=== PATIENT | female | born 1980 | race African-American/Black ===

== ENCOUNTER 2023-06-13 05:01 | Emergency (ER) | payer SELFPAY ==
--- OUTSIDE RECORDS SUMMARY | 2023-06-13 05:09 | XMS REPORT | Continuity of Care Document ---
Author Name Unknown Address [address] [facility] [place] [address] [facility] Address [address] [facility] [address] [place] [address] [address] Machine Runner Name Role Phone Ramiro Olvera MD Primary Care Physician [phone] VERONICA ZHENG Attending Clinician Unavailable TOBIAS ROUSE Attending Clinician Unavailable Ruby Menjivar MD Attending Clinician [phone] RUBY MENJIVAR Attending Clinician Unava Tobias Beach MD Attending Clinician [phone] Florina Linares Attending Clinician [phone] ANDREW MATAMOROS Attending Clinician Unavailable Doctor Unassigned, [place] Attending Clinician U yancy Royal MD, Fatimah Attending Clinician [phone] Ramiro Olvera MD Attending Clinician [phone] EITAN NEWELL Attending Clinician Unavailable Eitan Newell MD Attending Clinician [phone] SHAWNEE GREY Attending Clinician Unavail able Shawnee Grey MD Attending Clinician [phone] ALEXA PIZARRO Attending Clinician Unavailable Unknown, Attending Attending Clinician Unavailab chemo Pizarro PHOTOGRAPH TINTER, Alexa Attending Clinician [phone] YADIEL KENNEDY Attending Clinician Unavail able Yadiel Kennedy MD Attending Clinician [phone] Human PHOTOGRAPH TINTER, Maryanne Lucio Attending Clinician [phone] SACHI EUGENE Attending Clinician Unavailable HUMAN, MARYANNE Lucio Attending Clinician Unavailable Zoey Verma NP Attending Clinician [phone] Darby Moss MD Attending Clinician [phone] ZOEY VERMA Attending Clinician Unavailab FAUZIA Fuentes Attending Clinician Unavailable Sara PIERSON, Fauzia Victor Attending Clinician [phone] Lisa LEE, Tamy Roe Attending Clinician [phone] JAKY BISHOP Attending Clinician Unavailable RAMIRO OLVERA Attending Clinician Unavailable Terrie JEFFERSONP, Maggy Attending Clinician + MAGGY FALCON Attending Clinician Unaduke Merrill RN, Dyan Victor Attending Clinician Tanya Erazo MD Attending Clinician [phone] Lab, [facility] Attending Clinician Unavailable TANYA DIAZ Attending Clinician UnavailABHISHEK Viramontes Attending Clinician Unavailable Veronica Zheng MD Attending Clinician [phone] Abhishek Oden Attending Clinician [phone] TAMY HERNANDEZ Attending Clinician Unavailable YOLIS VILLA Attending Clinician Unavailable Allen KILGORE, Yolis Attending Clinician [phone] Lab, [facility] - Attending Clinician Unavailable Susanne Holland MD Attending Clinician [phone] SUSANNE HOLLAND Attending Clinician Unavailable DARBY MOSS Attending Clinician Unavailable Paz Miguel Attending Clinician [phone] AUGUST WEBB Attending Clinician Unavailable DELMA HARTMAN Attending Clinician UnavailPAULA Douglas Attending Clinician Unavailable Bong MONTERO, Janiya Kaur Attending Clinician Unavailab chemo MARIE, CHERI Attending Clinician Unavailable Marie PHOTOGRAPH TINTER, Cheri Attending Clinician [phone] MICHAEL BARRIENTOS Attending Clinician Unavailable Only, [facility] Attending Clinician Unavailabl e UNKNOWN, ATTENDING Attending Clinician Unavailab chemo BRAGA, CUBA B Attending Clinician Unavailable Mariely PHOTOGRAPH TINTER, Cuba B Attending Clinician [phone] Colin KILGORE, Ramonita Attending Clinician [phone] Spenser Kang MD Attending Clinician [phone] SPENSER KANG Attending Clinician Unavailable YADIEL BANEGAS Attending Clinician Unava ilable SUNSHINE DICKSON Attending Clinician Unavailable BERNABE VIVAS Attending Clinician UnavaRADHA Whyte Attending Clinician Unavail able RYAN MITCHELL Attending Clinician Unavailable GERARDO BARRIENTOS Attending Clinician Unavaila CATHERINE Li Attending Clinician Unavailable VERONICA ZHENG Admitting Clinician Unavailable YADIEL KENNEDY Admitting Clinician Unavail able MAGGY FALCON Admitting Clinician Unava ilable DARBY MOSS Admitting Clinician Unavailable PAZ COLON Admitting Clinician Unavaila yariel Zheng MD, Veronica Admitting Clinician [phone] Payers Payer Name Policy Type Policy Number Effective Date Expirati on Date Source [facility] [id number] 2016 00:00:00 Problems Condition Name Condition Details Condition Category Status Onset Date Resolution Date Last Treatment Date Treating Clinician Comments Source Low HDL (under 40) Low HDL (under 40) Disease Active 6-14 00:00: 00 [facility] Obesity affecting in third trimester Obesity affecting in third trimester Disease Active 18 00:00: 00 [facility] Morbid obesity due to excess calories Morbid obesity due to excess calories Disease Active 09-22 00:00: 00 [facility] HSV (herpes simplex virus) anogenital infection HSV (herpes simplex virus) anogenital infection Disease Active 07-25 00:00: 00 [facility] Allergies, Adverse Reactions, Alerts Allergy Name Allergy Type Status Severity Reaction(s) Onset Date Inactive Date Treating Clinician Comments Source IBUPROFE N DRUG INGREDI Active Other-Cmnt 11-14 00:00: 00 [facility] Ibuprofe n Propensi ty to adverse reaction s Active Other - See comments 11-14 00:00: 00 Pt states unable to take d/t having gastric bypass. [facility] NO KNOWN ALLERGIE S Drug Class Active [facility] Family History Family Member Diagnosis Comments Start Date Stop Date Sourc e Natural father Heart Unive [facility] Natural father Lipids Unive [facility] Natural father Other - see comments [facility] Maternal grandmother Diabetes [facility] Maternal grandmother Hypertension [facility] Natural mother Diabetes Unive [facility] Natural [facility] Hy[facility] Paternal grandmother Ovarian Cancer [facility] Natural sister Breast Cancer [facility] Social History Social Habit Start Date Stop Date Quantity Comments Source ASSERTION 2023-04-14 00:00:00 [facility] Gender identity [facility] Sexual orientation [facility] Alcohol intake 2023-06-08 00:00:00 2023-06-08 00:00:00 Current non-drinker of alcohol (finding) [facility] History of Social function 2022-09-17 00:00:00 2022-09-17 00:00:00 [facility] Exposure to SARS-CoV-2 (event) 2022-07-18 00:00:00 2022-07-28 15:11:00 Not sure [facility] Tobacco use and exposure 2021-09-26 00:00:00 2021-09-26 00:00:00 Smokeless tobacco non-user [facility] Sex Assigned At 1980 00:00:00 1980 00:00:00 [facility] Smoking Status Start Date Stop Date Source Never smoked tobacco [facility] Medications Ordered Medication Name Filled Medication Name Start Date Stop Date Current Medication? Ordering Clinician Indication Dosage Frequency Signature (SIG) Comments Components Source terconazole 0.4 % vaginal cream 06-09 00:00: 00 06-17 04:59 :00 Yes 1{appli cator} Insert 1 Applicator into vagina at bedtime for 7 days. [facility] magnesium oxide 400 mg (241.3 mg magnesium) tablet 05-26 00:00: 00 Yes [id number] 400mg Take 1 tablet by mouth in the morning. [facility] doxylamine- pyridoxine, vit B6, (DICLEGIS) 10-10 mg per tablet 05-25 00:00: 00 Yes [id number] 2{tbl} Take 2 tablets by mouth at bedtime. Take 1-2 tabs at bedtime as needed for nausea/vom iting [facility] amoxicillin -clavulanat e (AUGMENTIN) 875-125 mg per tablet 05-23 00:00: 00 05-31 04:59 :00 Yes [id number] 1{tbl} Take 1 tablet by mouth in the morning and 1 tablet in the evening. Do all this for 7 days. [facility] valACYclovi r 500 mg tablet 05-03 00:00: 00 Yes [id number] 500mg Take 1 tablet by mouth in the morning. [facility] triamcinolo ne acetonide 0.1 % cream 05-03 00:00: 00 Yes [id number] Apply to area(s) 2 (two) times daily. [facility] SERTRALINE 100 mg tablet 04-29 00:00: 00 Yes [id number] 100mg Take 1 tablet by mouth in the morning. [facility] SUMATRIPTAN 50 mg tablet 04-29 00:00: 00 Yes [id number] TAKE ONE (1) TABLET(S) BY MOUTH AT ONSET OF HEADACHE, MAY REPEAT 1 TAB AFTER 2 HOURS IF NO IMPROVEMEN T. TAKE NO MORE THAN 4 TABLETS IN 24 HOURS. [facility] bromphenira mine-pseudo ephedrine-D M (BROMFED DM) 2-30-10 mg/5 mL syrup 03-30 00:00: 00 05-11 00:00 :00 No [id number] 5mL Take 5 mL by mouth 4 (four) times daily as needed for Cough. [facility] nirmatrelvi r-ritonavir (PAXLOVID) 300 mg (150 mg x 2)-100 mg tablet 03-30 00:00: 00 04-05 05:59 :00 Yes [id number] 3{tbl} Take 3 tablets by mouth in the morning and 3 tablets in the evening. Do all this for 5 days. Take 2 tablets of Nirmatrelv ir and 1 tablet of Ritonavir per dose, 1 dose in the a.m. and 1 dose in the p.m. [facility] hydrocortis one 2.5 % cream 03-23 00:00: 00 Yes [id number] Apply to area(s) 2 (two) times daily as needed for Rash. Stop when clear, restart if rash returns. [facility] hydrocortis one 2.5 % ointment 03-23 00:00: 00 Yes [id number] Apply to area(s) 2 (two) times daily as needed for Rash. Stop when clear, restart if rash returns. [facility] fluocinolon e (DERMA-SMOO THE/FS BODY OIL) 0.01 % body oil 03-23 00:00: 00 Yes [id number] Apply to area(s) 3 (three) times daily. [facility] triamcinolo ne acetonide 0.1 % cream 03-23 00:00: 00 05-03 00:00 :00 No [id number] Apply to area(s) 2 (two) times daily. [facility] SUMAtriptan 50 mg tablet 03-16 00:00: 00 04-29 00:00 :00 No [id number] TAKE ONE (1) TABLET(S) BY MOUTH AT ONSET OF HEADACHE, MAY REPEAT 1 TAB AFTER 2 HOURS IF NO IMPROVEMEN T. TAKE NO MORE THAN 4 TABLETS IN 24 HOURS. [facility] acetaminoph en (TYLENOL) tablet 650 mg 2022-03 15:30: 00 02-26 15:34 :00 No 650mg 650 mg, Oral, ONCE, 1 dose, On Wed02/26/23 at 0930, SUYAPA [facility] NaCl 0.9% (NS) bolus infusion 1,000 mL 2022-03 15:15: 00 02-26 15:27 :00 No 1000mL at 999 mL/hr, 1,000 mL, IV Infusion, ONCE, 1 dose, On Wed02/26/23 at 0915, STAT [facility] fluconazole (DIFLUCAN) tablet 150 mg 2022-03 15:00: 00 02-26 14:36 :00 No 150mg 150 mg, Oral, ONCE NOW, 1 dose, On Wed02/26/23 at 0900, SUYAPA
Re ason for Anti-Infec tive: Documented Infection< br>Documen orlin Infection Site: Pelvic
Duration of Therapy: Other (see Comments) [facility] dicyclomine (BENTYL) capsule 20 mg 2022-03 14:15: 00 02-26 14:36 :00 No 20mg 20 mg, Oral, ONCE, 1 dose, On Wed02/26/23 at 0815, SUYAPA [facility] dicyclomine 20 mg tablet 2022-03 00:00: 00 Yes [id number] 20mg Take 1 tablet by mouth 4 (four) times daily as needed for Abdominal pain. [facility] ondansetron 4 mg disintegrat ing tablet 2022-03 00:00: 00 Yes [id number] 4mg Take 1 tablet by mouth every 8 (eight) hours as needed for Nausea and Vomiting (N/V). [facility] fluconazole (DIFLUCAN) 150 mg tablet 2022-03 00:00: 00 02-27 05:59 :00 No 150mg Take 1 tablet by mouth once now for 1 dose. Take in 72 Hours no refills [facility] VALACYCLOVI R 500 mg tablet 9-28 00:00: 00 04-30 00:00 :00 No [id number] 500mg TAKE 1 TABLET BY MOUTH DAILY. [facility] SUMAtriptan 50 mg tablet 11-20 00:00: 00 03-16 00:00 :00 No [id number] TAKE ONE (1) TABLET(S) BY MOUTH , MAY REPEAT AFTER 2 HOURS IF NO IMPROVEMEN T. TAKE NO MORE THAN 4 TABLETS IN 24 HOURS. [facility] fluticasone propionate 50 mcg/actuati on nasal spray 2 [place] 11-14 13:15: 00 11-14 12:34 :00 No 2{spray } 2 [place], Nasal, ONCE, 1 dose, On 11/14/22 at 0815, Routine [facility] ketorolac (TORADOL) injection 15 mg 11-14 12:30: 00 11-14 12:35 :00 No 15mg 15 mg, Intramuscu lar, ONCE, 1 dose, On 11/14/22 at 0730, Routine [facility] albuterol 90 mcg/actuati on inhaler 11-14 00:00: 00 Yes [id number] 2{puff} Inhale 2 Puffs every 4 (four) hours as needed for Wheezing or Shortness of Breath. [facility] nirmatrelvi r-ritonavir (PAXLOVID) 300 mg (150 mg x 2)-100 mg tablet 11-14 00:00: 00 03-30 00:00 :00 No [id number] 3{tbl} Take 3 tablets by mouth in the morning and 3 tablets in the evening. [facility] benzonatate 100 mg capsule 11-14 00:00: 00 03-30 00:00 :00 No [id number] 100mg Take 1 capsule by mouth 3 (three) times daily as needed for Cough. [facility] SUMAtriptan 50 mg tablet 25 00:00: 00 11-20 00:00 :00 No [id number] TAKE ONE (1) TABLET(S) BY MOUTH , MAY REPEAT AFTER 2 HOURS IF NO IMPROVEMEN T. TAKE NO MORE THAN 4 TABLETS IN 24 HOURS. [facility] SERTraline 100 mg tablet 09-17 00:00: 00 04-29 00:00 :00 No [id number] 100mg Take 1 tablet by mouth in the morning. [facility] SERTraline 50 mg tablet 09-17 00:00: 00 11-20 00:00 :00 No TAKE ONE-HALF (1/2) TABLET(S) BY MOUTH DAILY FOR THE FIRST WEEK PRIOR TO TRANSITION ING TO FULL DOSE OF ONE TABLET ONCE A DAY IN THE MORNING. [facility] fluconazole 150 mg tablet 16 00:00: 00 05-11 00:00 :00 No Take one tablet PO today, then repeat in 72 hours [facility] metroNIDAZO LE 500 mg tablet 08-21 00:00: 00 08-29 04:59 :00 No 500mg Take 1 tablet by mouth in the morning and 1 tablet in the evening. Do all this for 7 days. [facility] fluconazole 150 mg tablet 08-20 00:00: 00 05-11 00:00 :00 No [id number] Take one tablet PO today, then repeat in 72 hours [facility] norgestimat e-ethinyl estradioL (SPRINTEC) 0.25-35 mg-mcg per tablet 08-20 00:00: 00 03-30 00:00 :00 No [id number] 1{tbl} Take 1 tablet by mouth in the morning. [facility] norgestimat e-ethinyl estradioL (SPRINTEC) 0.25-35 mg-mcg per tablet 5-31 00:00: 00 08-20 00:00 :00 No 1{tbl} Take 1 tablet by mouth in the morning. [facility] SERTraline 50 mg tablet 4-27 00:00: 00 09-17 00:00 :00 No [id number] 50mg Take 1 tablet by mouth in the morning. Take 1/2 tab by mouth daily for the first week prior to transition ing to full dose [facility] fluconazole 150 mg tablet 12 00:00: 00 08-20 00:00 :00 No TAKE 1 TABLET BY MOUTH ONCE NOW FOR 1 DOSE. [facility] traMADoL 50 mg tablet 06-04 00:00: 00 Yes TAKE ONE (1) TABLET BY MOUTH EVERY SIX HOURS NEEDED FOR PAIN (SCALE 7-10) OR PAIN (SCALE 4-6). [facility] triamcinolo ne acetonide 0.1 % cream 06-04 00:00: 00 Yes Apply to area(s) 2 (two) times daily as needed. [facility] methylPREDN ISolone (MEDROL, GERMANIA,) 4 mg tablets 06-04 00:00: 00 05-11 00:00 :00 No [id number] Take by mouth SEE-INSTRU CTIONS. follow package directions [facility] SUMAtriptan 50 mg tablet 06-04 00:00: 00 09-29 00:00 :00 No [id number] Take one tab, may repeat after 2 hours if no improvemen t. Take no more than 4 tablets in 24 hours [facility] fluconazole (DIFLUCAN) 150 mg tablet 06-04 00:00: 00 06-17 00:00 :00 No [id number] 150mg Take 1 tablet by mouth once now for 1 dose. [facility] azithromyci n (ZITHROMAX Z-GERMANIA) 250 mg tablet 06-04 00:00: 00 06-10 04:59 :00 No [id number] Take 2 tablets by mouth daily for 1 day, THEN 1 tablet daily for 4 days. [facility] SUMAtriptan 50 mg tablet 05-24 00:00: 00 06-04 00:00 :00 No [id number] Take one tab, may repeat after 2 hours if no improvemen t. Take no more than 4 tablets in 24 hours [facility] metoclopram dora HCl (REGLAN) 5 mg tablet 05-24 00:00: 00 05-28 04:59 :00 No [id number] 10mg Take 2 tablets by mouth every 6 (six) hours as needed for Nausea and Vomiting (N/V) for up to 3 days. [facility] Ketorolac Tromethamin e 60 mg/2 mL 05-24 00:00: 00 05-24 00:00 :00 No [id number] 60mg 2 mL by Intramuscu lar route once now for 1 dose. [facility] triamcinolo ne acetonide 0.1 % cream 03-20 00:00: 00 06-04 00:00 :00 No [id number] Apply to area(s) 2 (two) times daily as needed for Itching. [facility] cephALEXin (KEFLEX) 500 mg capsule 03-20 00:00: 00 03-26 05:59 :00 No [id number] 500mg Take 1 capsule by mouth 4 (four) times daily for 5 days. [facility] predniSONE 20 mg tablet 03-20 00:00: 00 03-26 05:59 :00 No [id number] 20mg Take 1 tablet by mouth in the morning for 5 days. [facility] atomoxetine (STRATTERA) 25 mg capsule 2021-03 00:00: 00 04-03 05:59 :00 No [id number] 25mg Take 1 capsule by mouth in the morning for 30 days. [facility] ketorolac (TORADOL) injection 15 mg 2021-03 02:30: 00 01-07 14:29 :00 No 15mg 15 mg, Slow IV Push, ONCE, 1 dose, On Wed01/06/22 at 2130, Routine [facility] iopamidol (ISOVUE 370-500 mL) injection 50 mL 2021-03 01:45: 00 01-07 01:45 :00 No [id number] 50mL 50 mL, Intravenou s, ONCE, 1 dose, On Wed01/06/22 at 2045, Routine [facility] norgestimat e-ethinyl estradioL (SPRINTEC) 0.25-35 mg-mcg per tablet 2021-03 00:00: 00 08-05 00:00 :00 No 1{tbl} Take 1 tablet by mouth in the morning. [facility] THOMAS FE 03/27, 28, 1 mg-20 mcg (21)/75 mg (7) tablet 2021-03 00:00: 00 08-05 00:00 :00 No TAKE ONE (1) TABLET BY MOUTH ONCE DAILY. [facility] traMADoL (ULTRAM) 50 mg tablet 2021-03 00:00: 00 06-04 00:00 :00 No [id number] 50mg Take 1 tablet by mouth every 6 (six) hours as needed for Pain (scale 7-10) or Pain (scale 4-6). Indication s: acute pain [facility] fluconazole 150 mg tablet 09-26 00:00: 00 06-04 00:00 :00 No [id number] Take one tablet PO today, then repeat in 72 hours [facility] valACYclovi r (VALTREX) 500 mg tablet 08-11 00:00: 00 12-03 00:00 :00 No [id number] 500mg Take 1 tablet by mouth daily. [facility] fluconazole 150 mg tablet 08-11 00:00: 00 06-04 00:00 :00 No Take one tablet PO today, then repeat in 72 hours [facility] LOESTRIN FE (LOESTRIN FE 03/27) 1 mg-20 mcg (21)/75 mg (7) tablet 08-06 00:00: 00 01-07 00:00 :00 No [id number] 1{tbl} Take 1 tablet by mouth daily. [facility] omeprazole 20 mg capsule 2020-03 00:00: 00 Yes [id number] Open capsule and take by mouth once daily for 8 weeks [facility] ondansetron 4 mg disintegrat ing tablet 2020-03 00:00: 00 08-20 00:00 :00 No [id number] 4mg Take 1 tablet by mouth every 8 (eight) hours as needed for Nausea and Vomiting (N/V). [facility] oxyCODONE 5 mg immediate release tablet 2020-03 00:00: 00 06-04 00:00 :00 No [id number] 5mg Take 1 tablet by mouth every 6 (six) hours as needed for Pain (scale 7-10). Indication s: acute pain [facility] fluticasone propionate 50 mcg/actuati on nasal spray 11-04 00:00: 00 Yes [id number] 1{spray } Use 1 [place] in each nostril 2 (two) times daily. [facility] Immunizations Ordered Immunization Name Filled Immunization Name Date Status Comments Source SARS-COV-2 COVID-19 PFIZER VACCINE 2020-08-19 00:00:00 Completed [facility] SARS-COV-2 COVID-19 PFIZER VACCINE 2020-08-19 00:00:00 Completed [facility] SARS-COV-2 COVID-19 PFIZER VACCINE 2020-08-19 00:00:00 Completed [facility] SARS-COV-2 COVID-19 PFIZER VACCINE 2020-08-19 00:00:00 Completed [facility] SARS-COV-2 COVID-19 PFIZER VACCINE 2020-08-19 00:00:00 Completed [facility] SARS-COV-2 COVID-19 PFIZER VACCINE 2020-08-19 00:00:00 Completed [facility] SARS-COV-2 COVID-19 PFIZER VACCINE 2020-08-19 00:00:00 Completed [facility] SARS-COV-2 COVID-19 PFIZER VACCINE 2020-08-19 00:00:00 Completed [facility] SARS-COV-2 COVID-19 PFIZER VACCINE 2020-08-19 00:00:00 Completed [facility] SARS-COV-2 COVID-19 PFIZER VACCINE 2020-08-19 00:00:00 Completed [facility] SARS-COV-2 COVID-19 PFIZER VACCINE 2020-08-19 00:00:00 Completed [facility] SARS-COV-2 COVID-19 PFIZER VACCINE 2020-08-19 00:00:00 Completed [facility] SARS-COV-2 COVID-19 PFIZER VACCINE 2020-08-19 00:00:00 Completed [facility] SARS-COV-2 COVID-19 PFIZER VACCINE 2020-08-19 00:00:00 Completed [facility] SARS-COV-2 COVID-19 PFIZER VACCINE 2020-08-19 00:00:00 Completed [facility] SARS-COV-2 COVID-19 PFIZER VACCINE 2020-08-19 00:00:00 Completed [facility] SARS-COV-2 COVID-19 PFIZER VACCINE 2020-08-19 00:00:00 Completed [facility] SARS-COV-2 COVID-19 PFIZER VACCINE 2020-08-19 00:00:00 Completed [facility] SARS-COV-2 COVID-19 PFIZER VACCINE 2020-08-19 00:00:00 Completed [facility] SARS-COV-2 COVID-19 PFIZER VACCINE 2020-08-19 00:00:00 Completed [facility] SARS-COV-2 COVID-19 PFIZER VACCINE 2020-08-19 00:00:00 Completed [facility] SARS-COV-2 COVID-19 PFIZER VACCINE 2020-08-19 00:00:00 Completed [facility] SARS-COV-2 COVID-19 PFIZER VACCINE 2020-08-19 00:00:00 Completed [facility] SARS-COV-2 COVID-19 PFIZER VACCINE 2020-08-19 00:00:00 Completed [facility] SARS-COV-2 COVID-19 PFIZER VACCINE 2020-08-19 00:00:00 Completed [facility] SARS-COV-2 COVID-19 PFIZER VACCINE 2020-08-19 00:00:00 Completed [facility] SARS-COV-2 COVID-19 PFIZER VACCINE 2020-08-19 00:00:00 Completed [facility] SARS-COV-2 COVID-19 PFIZER VACCINE 2020-08-19 00:00:00 Completed [facility] SARS-COV-2 COVID-19 PFIZER VACCINE 2020-08-19 00:00:00 Completed [facility] SARS-COV-2 COVID-19 PFIZER VACCINE 2020-08-19 00:00:00 Completed [facility] SARS-COV-2 COVID-19 PFIZER VACCINE 2020-08-19 00:00:00 Completed [facility] SARS-COV-2 COVID-19 PFIZER VACCINE 2020-08-19 00:00:00 Completed [facility] SARS-COV-2 COVID-19 PFIZER VACCINE 2020-08-19 00:00:00 Completed [facility] SARS-COV-2 COVID-19 PFIZER VACCINE 2020-08-19 00:00:00 Completed [facility] SARS-COV-2 COVID-19 PFIZER VACCINE 2020-08-19 00:00:00 Completed [facility] SARS-COV-2 COVID-19 PFIZER VACCINE 2020-08-19 00:00:00 Completed [facility] SARS-COV-2 COVID-19 PFIZER VACCINE 2020-08-19 00:00:00 Completed [facility] SARS-COV-2 COVID-19 PFIZER VACCINE 2020-08-19 00:00:00 Completed [facility] SARS-COV-2 COVID-19 PFIZER VACCINE 2020-08-19 00:00:00 Completed [facility] SARS-COV-2 COVID-19 PFIZER VACCINE 2020-08-19 00:00:00 Completed [facility] SARS-COV-2 COVID-19 PFIZER VACCINE 2020-08-19 00:00:00 Completed [facility] SARS-COV-2 COVID-19 PFIZER VACCINE 2020-08-19 00:00:00 Completed [facility] SARS-COV-2 COVID-19 PFIZER VACCINE 2020-08-19 00:00:00 Completed [facility] SARS-COV-2 COVID-19 PFIZER VACCINE 2020-08-19 00:00:00 Completed [facility] SARS-COV-2 COVID-19 PFIZER VACCINE 2020-08-19 00:00:00 Completed [facility] SARS-COV-2 COVID-19 PFIZER VACCINE 2020-07-26 00:00:00 Completed [facility] SARS-COV-2 COVID-19 PFIZER VACCINE 2020-07-26 00:00:00 Completed [facility] SARS-COV-2 COVID-19 PFIZER VACCINE 2020-07-26 00:00:00 Completed [facility] SARS-COV-2 COVID-19 PFIZER VACCINE 2020-07-26 00:00:00 Completed [facility] SARS-COV-2 COVID-19 PFIZER VACCINE 2020-07-26 00:00:00 Completed [facility] SARS-COV-2 COVID-19 PFIZER VACCINE 2020-07-26 00:00:00 Completed [facility] SARS-COV-2 COVID-19 PFIZER VACCINE 2020-07-26 00:00:00 Completed [facility] SARS-COV-2 COVID-19 PFIZER VACCINE 2020-07-26 00:00:00 Completed [facility] SARS-COV-2 COVID-19 PFIZER VACCINE 2020-07-26 00:00:00 Completed [facility] SARS-COV-2 COVID-19 PFIZER VACCINE 2020-07-26 00:00:00 Completed [facility] SARS-COV-2 COVID-19 PFIZER VACCINE 2020-07-26 00:00:00 Completed [facility] SARS-COV-2 COVID-19 PFIZER VACCINE 2020-07-26 00:00:00 Completed [facility] SARS-COV-2 COVID-19 PFIZER VACCINE 2020-07-26 00:00:00 Completed [facility] SARS-COV-2 COVID-19 PFIZER VACCINE 2020-07-26 00:00:00 Completed [facility] SARS-COV-2 COVID-19 PFIZER VACCINE 2020-07-26 00:00:00 Completed [facility] SARS-COV-2 COVID-19 PFIZER VACCINE 2020-07-26 00:00:00 Completed [facility] SARS-COV-2 COVID-19 PFIZER VACCINE 2020-07-26 00:00:00 Completed [facility] SARS-COV-2 COVID-19 PFIZER VACCINE 2020-07-26 00:00:00 Completed [facility] SARS-COV-2 COVID-19 PFIZER VACCINE 2020-07-26 00:00:00 Completed [facility] SARS-COV-2 COVID-19 PFIZER VACCINE 2020-07-26 00:00:00 Completed [facility] SARS-COV-2 COVID-19 PFIZER VACCINE 2020-07-26 00:00:00 Completed [facility] SARS-COV-2 COVID-19 PFIZER VACCINE 2020-07-26 00:00:00 Completed [facility] SARS-COV-2 COVID-19 PFIZER VACCINE 2020-07-26 00:00:00 Completed [facility] SARS-COV-2 COVID-19 PFIZER VACCINE 2020-07-26 00:00:00 Completed [facility] SARS-COV-2 COVID-19 PFIZER VACCINE 2020-07-26 00:00:00 Completed [facility] SARS-COV-2 COVID-19 PFIZER VACCINE 2020-07-26 00:00:00 Completed [facility] SARS-COV-2 COVID-19 PFIZER VACCINE 2020-07-26 00:00:00 Completed [facility] SARS-COV-2 COVID-19 PFIZER VACCINE 2020-07-26 00:00:00 Completed [facility] SARS-COV-2 COVID-19 PFIZER VACCINE 2020-07-26 00:00:00 Completed [facility] SARS-COV-2 COVID-19 PFIZER VACCINE 2020-07-26 00:00:00 Completed [facility] SARS-COV-2 COVID-19 PFIZER VACCINE 2020-07-26 00:00:00 Completed [facility] SARS-COV-2 COVID-19 PFIZER VACCINE 2020-07-26 00:00:00 Completed [facility] SARS-COV-2 COVID-19 PFIZER VACCINE 2020-07-26 00:00:00 Completed [facility] SARS-COV-2 COVID-19 PFIZER VACCINE 2020-07-26 00:00:00 Completed [facility] SARS-COV-2 COVID-19 PFIZER VACCINE 2020-07-26 00:00:00 Completed [facility] SARS-COV-2 COVID-19 PFIZER VACCINE 2020-07-26 00:00:00 Completed [facility] SARS-COV-2 COVID-19 PFIZER VACCINE 2020-07-26 00:00:00 Completed [facility] SARS-COV-2 COVID-19 PFIZER VACCINE 2020-07-26 00:00:00 Completed [facility] SARS-COV-2 COVID-19 PFIZER VACCINE 2020-07-26 00:00:00 Completed [facility] SARS-COV-2 COVID-19 PFIZER VACCINE 2020-07-26 00:00:00 Completed [facility] SARS-COV-2 COVID-19 PFIZER VACCINE 2020-07-26 00:00:00 Completed [facility] SARS-COV-2 COVID-19 PFIZER VACCINE 2020-07-26 00:00:00 Completed [facility] SARS-COV-2 COVID-19 PFIZER VACCINE 2020-07-26 00:00:00 Completed [facility] SARS-COV-2 COVID-19 PFIZER VACCINE 2020-07-26 00:00:00 Completed [facility] SARS-COV-2 COVID-19 PFIZER VACCINE 2020-07-26 00:00:00 Completed [facility] TDAP (ADACEL) VACCINE 2017-01-18 00:00:00 Completed [facility] Influenza Virus Vaccine Quad IM 3+ YRS 2017-01-18 00:00:00 Completed [facility] TDAP (ADACEL) VACCINE 2017-01-18 00:00:00 Completed [facility] Influenza Virus Vaccine Quad IM 3+ YRS 2017-01-18 00:00:00 Completed [facility] TDAP (ADACEL) VACCINE 2017-01-18 00:00:00 Completed [facility] Influenza Virus Vaccine Quad IM 3+ YRS 2017-01-18 00:00:00 Completed [facility] TDAP (ADACEL) VACCINE 2017-01-18 00:00:00 Completed [facility] Influenza Virus Vaccine Quad IM 3+ YRS 2017-01-18 00:00:00 Completed [facility] TDAP (ADACEL) VACCINE 2017-01-18 00:00:00 Completed [facility] Influenza Virus Vaccine Quad IM 3+ YRS 2017-01-18 00:00:00 Completed [facility] TDAP (ADACEL) VACCINE 2017-01-18 00:00:00 Completed [facility] Influenza Virus Vaccine Quad IM 3+ YRS 2017-01-18 00:00:00 Completed [facility] TDAP (ADACEL) VACCINE 2017-01-18 00:00:00 Completed [facility] Influenza Virus Vaccine Quad IM 3+ YRS 2017-01-18 00:00:00 Completed [facility] TDAP (ADACEL) VACCINE 2017-01-18 00:00:00 Completed [facility] Influenza Virus Vaccine Quad IM 3+ YRS 2017-01-18 00:00:00 Completed [facility] TDAP (ADACEL) VACCINE 2017-01-18 00:00:00 Completed [facility] Influenza Virus Vaccine Quad IM 3+ YRS 2017-01-18 00:00:00 Completed [facility] TDAP (ADACEL) VACCINE 2017-01-18 00:00:00 Completed [facility] Influenza Virus Vaccine Quad IM 3+ YRS 2017-01-18 00:00:00 Completed [facility] TDAP (ADACEL) VACCINE 2017-01-18 00:00:00 Completed [facility] Influenza Virus Vaccine Quad IM 3+ YRS 2017-01-18 00:00:00 Completed [facility] TDAP (ADACEL) VACCINE 2017-01-18 00:00:00 Completed [facility] Influenza Virus Vaccine Quad IM 3+ YRS 2017-01-18 00:00:00 Completed [facility] TDAP (ADACEL) VACCINE 2017-01-18 00:00:00 Completed [facility] Influenza Virus Vaccine Quad IM 3+ YRS 2017-01-18 00:00:00 Completed [facility] TDAP (ADACEL) VACCINE 2017-01-18 00:00:00 Completed [facility] Influenza Virus Vaccine Quad IM 3+ YRS 2017-01-18 00:00:00 Completed [facility] TDAP (ADACEL) VACCINE 2017-01-18 00:00:00 Completed [facility] Influenza Virus Vaccine Quad IM 3+ YRS 2017-01-18 00:00:00 Completed [facility] TDAP (ADACEL) VACCINE 2017-01-18 00:00:00 Completed [facility] Influenza Virus Vaccine Quad IM 3+ YRS 2017-01-18 00:00:00 Completed [facility] TDAP (ADACEL) VACCINE 2017-01-18 00:00:00 Completed [facility] Influenza Virus Vaccine Quad IM 3+ YRS 2017-01-18 00:00:00 Completed [facility] TDAP (ADACEL) VACCINE 2017-01-18 00:00:00 Completed [facility] Influenza Virus Vaccine Quad IM 3+ YRS 2017-01-18 00:00:00 Completed [facility] TDAP (ADACEL) VACCINE 2017-01-18 00:00:00 Completed [facility] Influenza Virus Vaccine Quad IM 3+ YRS 2017-01-18 00:00:00 Completed [facility] TDAP (ADACEL) VACCINE 2017-01-18 00:00:00 Completed [facility] Influenza Virus Vaccine Quad IM 3+ YRS 2017-01-18 00:00:00 Completed [facility] TDAP (ADACEL) VACCINE 2017-01-18 00:00:00 Completed [facility] Influenza Virus Vaccine Quad IM 3+ YRS 2017-01-18 00:00:00 Completed [facility] TDAP (ADACEL) VACCINE 2017-01-18 00:00:00 Completed [facility] Influenza Virus Vaccine Quad IM 3+ YRS 2017-01-18 00:00:00 Completed [facility] TDAP (ADACEL) VACCINE 2017-01-18 00:00:00 Completed [facility] Influenza Virus Vaccine Quad IM 3+ YRS 2017-01-18 00:00:00 Completed [facility] TDAP (ADACEL) VACCINE 2017-01-18 00:00:00 Completed [facility] Influenza Virus Vaccine Quad IM 3+ YRS 2017-01-18 00:00:00 Completed [facility] TDAP (ADACEL) VACCINE 2017-01-18 00:00:00 Completed [facility] Influenza Virus Vaccine Quad IM 3+ YRS 2017-01-18 00:00:00 Completed [facility] TDAP (ADACEL) VACCINE 2017-01-18 00:00:00 Completed [facility] Influenza Virus Vaccine Quad IM 3+ YRS 2017-01-18 00:00:00 Completed [facility] TDAP (ADACEL) VACCINE 2017-01-18 00:00:00 Completed [facility] Influenza Virus Vaccine Quad IM 3+ YRS 2017-01-18 00:00:00 Completed [facility] TDAP (ADACEL) VACCINE 2017-01-18 00:00:00 Completed [facility] Influenza Virus Vaccine Quad IM 3+ YRS 2017-01-18 00:00:00 Completed [facility] TDAP (ADACEL) VACCINE 2017-01-18 00:00:00 Completed [facility] Influenza Virus Vaccine Quad IM 3+ YRS 2017-01-18 00:00:00 Completed [facility] TDAP (ADACEL) VACCINE 2017-01-18 00:00:00 Completed [facility] Influenza Virus Vaccine Quad IM 3+ YRS 2017-01-18 00:00:00 Completed [facility] TDAP (ADACEL) VACCINE 2017-01-18 00:00:00 Completed [facility] Influenza Virus Vaccine Quad IM 3+ YRS 2017-01-18 00:00:00 Completed [facility] TDAP (ADACEL) VACCINE 2017-01-18 00:00:00 Completed [facility] Influenza Virus Vaccine Quad IM 3+ YRS 2017-01-18 00:00:00 Completed [facility] TDAP (ADACEL) VACCINE 2017-01-18 00:00:00 Completed [facility] Influenza Virus Vaccine Quad IM 3+ YRS 2017-01-18 00:00:00 Completed [facility] TDAP (ADACEL) VACCINE 2017-01-18 00:00:00 Completed [facility] Influenza Virus Vaccine Quad IM 3+ YRS 2017-01-18 00:00:00 Completed [facility] TDAP (ADACEL) VACCINE 2017-01-18 00:00:00 Completed [facility] Influenza Virus Vaccine Quad IM 3+ YRS 2017-01-18 00:00:00 Completed [facility] TDAP (ADACEL) VACCINE 2017-01-18 00:00:00 Completed [facility] Influenza Virus Vaccine Quad IM 3+ YRS 2017-01-18 00:00:00 Completed [facility] TDAP (ADACEL) VACCINE 2017-01-18 00:00:00 Completed [facility] Influenza Virus Vaccine Quad IM 3+ YRS 2017-01-18 00:00:00 Completed [facility] TDAP (ADACEL) VACCINE 2017-01-18 00:00:00 Completed [facility] Influenza Virus Vaccine Quad IM 3+ YRS 2017-01-18 00:00:00 Completed [facility] TDAP (ADACEL) VACCINE 2017-01-18 00:00:00 Completed [facility] Influenza Virus Vaccine Quad IM 3+ YRS 2017-01-18 00:00:00 Completed [facility] TDAP (ADACEL) VACCINE 2017-01-18 00:00:00 Completed [facility] Influenza Virus Vaccine Quad IM 3+ YRS 2017-01-18 00:00:00 Completed [facility] TDAP (ADACEL) VACCINE 2017-01-18 00:00:00 Completed [facility] Influenza Virus Vaccine Quad IM 3+ YRS 2017-01-18 00:00:00 Completed [facility] TDAP (ADACEL) VACCINE 2017-01-18 00:00:00 Completed [facility] Influenza Virus Vaccine Quad IM 3+ YRS 2017-01-18 00:00:00 Completed [facility] TDAP (ADACEL) VACCINE 2017-01-18 00:00:00 Completed [facility] Influenza Virus Vaccine Quad IM 3+ YRS 2017-01-18 00:00:00 Completed [facility] TDAP (ADACEL) VACCINE 2017-01-18 00:00:00 Completed [facility] Influenza Virus Vaccine Quad IM 3+ YRS 2017-01-18 00:00:00 Completed [facility] TDAP (ADACEL) VACCINE 2017-01-18 00:00:00 Completed [facility] Influenza Virus Vaccine Quad IM 3+ YRS 2017-01-18 00:00:00 Completed [facility] TDAP (ADACEL) VACCINE Unknown Completed [facility] Influenza Virus Vaccine Quad IM 3+ YRS Unknown Completed [facility] SARS-COV-2 COVID-19 PFIZER VACCINE Unknown Completed [facility] SARS-COV-2 COVID-19 PFIZER VACCINE Unknown Completed [facility] TDAP (ADACEL) VACCINE Unknown Completed [facility] Influenza Virus Vaccine Quad IM 3+ YRS Unknown Completed [facility] SARS-COV-2 COVID-19 PFIZER VACCINE Unknown Completed [facility] SARS-COV-2 COVID-19 PFIZER VACCINE Unknown Completed [facility] TDAP (ADACEL) VACCINE Unknown Completed [facility] Influenza Virus Vaccine Quad IM 3+ YRS Unknown Completed [facility] SARS-COV-2 COVID-19 PFIZER VACCINE Unknown Completed [facility] SARS-COV-2 COVID-19 PFIZER VACCINE Unknown Completed [facility] TDAP (ADACEL) VACCINE Unknown Completed [facility] Influenza Virus Vaccine Quad IM 3+ YRS Unknown Completed [facility] SARS-COV-2 COVID-19 PFIZER VACCINE Unknown Completed [facility] TDAP (ADACEL) VACCINE Unknown Completed [facility] Influenza Virus Vaccine Quad IM 3+ YRS Unknown Completed [facility] SARS-COV-2 COVID-19 PFIZER VACCINE Unknown Completed [facility] SARS-COV-2 COVID-19 PFIZER VACCINE Unknown Completed [facility] TDAP (ADACEL) VACCINE Unknown Completed [facility] Influenza Virus Vaccine Quad IM 3+ YRS Unknown Completed [facility] SARS-COV-2 COVID-19 PFIZER VACCINE Unknown Completed [facility] SARS-COV-2 COVID-19 PFIZER VACCINE Unknown Completed [facility] TDAP (ADACEL) VACCINE Unknown Completed [facility] Influenza Virus Vaccine Quad IM 3+ YRS Unknown Completed [facility] SARS-COV-2 COVID-19 PFIZER VACCINE Unknown Completed [facility] SARS-COV-2 COVID-19 PFIZER VACCINE Unknown Completed [facility] TDAP (ADACEL) VACCINE Unknown Completed [facility] Influenza Virus Vaccine Quad IM 3+ YRS Unknown Completed [facility] SARS-COV-2 COVID-19 PFIZER VACCINE Unknown Completed [facility] SARS-COV-2 COVID-19 PFIZER VACCINE Unknown Completed [facility] TDAP (ADACEL) VACCINE Unknown Completed [facility] Influenza Virus Vaccine Quad IM 3+ YRS Unknown Completed [facility] SARS-COV-2 COVID-19 PFIZER VACCINE Unknown Completed [facility] SARS-COV-2 COVID-19 PFIZER VACCINE Unknown Completed [facility] TDAP (ADACEL) VACCINE Unknown Completed [facility] Influenza Virus Vaccine Quad IM 3+ YRS Unknown Completed [facility] SARS-COV-2 COVID-19 PFIZER VACCINE Unknown Completed [facility] SARS-COV-2 COVID-19 PFIZER VACCINE Unknown Completed [facility] TDAP (ADACEL) VACCINE Unknown Completed [facility] Influenza Virus Vaccine Quad IM 3+ YRS Unknown Completed [facility] SARS-COV-2 COVID-19 PFIZER VACCINE Unknown Completed [facility] SARS-COV-2 COVID-19 PFIZER VACCINE Unknown Completed [facility] TDAP (ADACEL) VACCINE Unknown Completed [facility] Influenza Virus Vaccine Quad IM 3+ YRS Unknown Completed [facility] SARS-COV-2 COVID-19 PFIZER VACCINE Unknown Completed [facility] SARS-COV-2 COVID-19 PFIZER VACCINE Unknown Completed [facility] TDAP (ADACEL) VACCINE Unknown Completed [facility] Influenza Virus Vaccine Quad IM 3+ YRS Unknown Completed [facility] SARS-COV-2 COVID-19 PFIZER VACCINE Unknown Completed [facility] SARS-COV-2 COVID-19 PFIZER VACCINE Unknown Completed [facility] TDAP (ADACEL) VACCINE Unknown Completed [facility] Influenza Virus Vaccine Quad IM 3+ YRS Unknown Completed [facility] SARS-COV-2 COVID-19 PFIZER VACCINE Unknown Completed [facility] SARS-COV-2 COVID-19 PFIZER VACCINE Unknown Completed [facility] TDAP (ADACEL) VACCINE Unknown Completed [facility] Influenza Virus Vaccine Quad IM 3+ YRS Unknown Completed [facility] SARS-COV-2 COVID-19 PFIZER VACCINE Unknown Completed [facility] SARS-COV-2 COVID-19 PFIZER VACCINE Unknown Completed [facility] TDAP (ADACEL) VACCINE Unknown Completed [facility] Influenza Virus Vaccine Quad IM 3+ YRS Unknown Completed [facility] SARS-COV-2 COVID-19 PFIZER VACCINE Unknown Completed [facility] SARS-COV-2 COVID-19 PFIZER VACCINE Unknown Completed [facility] TDAP (ADACEL) VACCINE Unknown Completed [facility] Influenza Virus Vaccine Quad IM 3+ YRS Unknown Completed [facility] SARS-COV-2 COVID-19 PFIZER VACCINE Unknown Completed [facility] SARS-COV-2 COVID-19 PFIZER VACCINE Unknown Completed [facility] TDAP (ADACEL) VACCINE Unknown Completed [facility] Influenza Virus Vaccine Quad IM 3+ YRS Unknown Completed [facility] SARS-COV-2 COVID-19 PFIZER VACCINE Unknown Completed [facility] SARS-COV-2 COVID-19 PFIZER VACCINE Unknown Completed [facility] TDAP (ADACEL) VACCINE Unknown Completed [facility] Influenza Virus Vaccine Quad IM 3+ YRS Unknown Completed [facility] SARS-COV-2 COVID-19 PFIZER VACCINE Unknown Completed [facility] SARS-COV-2 COVID-19 PFIZER VACCINE Unknown Completed [facility] TDAP (ADACEL) VACCINE Unknown Completed [facility] Influenza Virus Vaccine Quad IM 3+ YRS Unknown Completed [facility] SARS-COV-2 COVID-19 PFIZER VACCINE Unknown Completed [facility] SARS-COV-2 COVID-19 PFIZER VACCINE Unknown Completed [facility] TDAP (ADACEL) VACCINE Unknown Completed [facility] Influenza Virus Vaccine Quad IM 3+ YRS Unknown Completed [facility] SARS-COV-2 COVID-19 PFIZER VACCINE Unknown Completed [facility] SARS-COV-2 COVID-19 PFIZER VACCINE Unknown Completed [facility] TDAP (ADACEL) VACCINE Unknown Completed [facility] Influenza Virus Vaccine Quad IM 3+ YRS Unknown Completed [facility] SARS-COV-2 COVID-19 PFIZER VACCINE Unknown Completed [facility] SARS-COV-2 COVID-19 PFIZER VACCINE Unknown Completed [facility] TDAP (ADACEL) VACCINE Unknown Completed [facility] Influenza Virus Vaccine Quad IM 3+ YRS Unknown Completed [facility] SARS-COV-2 COVID-19 PFIZER VACCINE Unknown Completed [facility] SARS-COV-2 COVID-19 PFIZER VACCINE Unknown Completed [facility] TDAP (ADACEL) VACCINE Unknown Completed [facility] Influenza Virus Vaccine Quad IM 3+ YRS Unknown Completed [facility] SARS-COV-2 COVID-19 PFIZER VACCINE Unknown Completed [facility] SARS-COV-2 COVID-19 PFIZER VACCINE Unknown Completed [facility] TDAP (ADACEL) VACCINE Unknown Completed [facility] Influenza Virus Vaccine Quad IM 3+ YRS Unknown Completed [facility] SARS-COV-2 COVID-19 PFIZER VACCINE Unknown Completed [facility] SARS-COV-2 COVID-19 PFIZER VACCINE Unknown Completed [facility] TDAP (ADACEL) VACCINE Unknown Completed [facility] Influenza Virus Vaccine Quad IM 3+ YRS Unknown Completed [facility] SARS-COV-2 COVID-19 PFIZER VACCINE Unknown Completed [facility] SARS-COV-2 COVID-19 PFIZER VACCINE Unknown Completed [facility] TDAP (ADACEL) VACCINE Unknown Completed [facility] Influenza Virus Vaccine Quad IM 3+ YRS Unknown Completed [facility] SARS-COV-2 COVID-19 PFIZER VACCINE Unknown Completed [facility] SARS-COV-2 COVID-19 PFIZER VACCINE Unknown Completed [facility] TDAP (ADACEL) VACCINE Unknown Completed [facility] Influenza Virus Vaccine Quad IM 3+ YRS Unknown Completed [facility] SARS-COV-2 COVID-19 PFIZER VACCINE Unknown Completed [facility] SARS-COV-2 COVID-19 PFIZER VACCINE Unknown Completed [facility] TDAP (ADACEL) VACCINE Unknown Completed [facility] Influenza Virus Vaccine Quad IM 3+ YRS Unknown Completed [facility] SARS-COV-2 COVID-19 PFIZER VACCINE Unknown Completed [facility] SARS-COV-2 COVID-19 PFIZER VACCINE Unknown Completed [facility] TDAP (ADACEL) VACCINE Unknown Completed [facility] Influenza Virus Vaccine Quad IM 3+ YRS Unknown Completed [facility] SARS-COV-2 COVID-19 PFIZER VACCINE Unknown Completed [facility] SARS-COV-2 COVID-19 PFIZER VACCINE Unknown Completed [facility] TDAP (ADACEL) VACCINE Unknown Completed [facility] Influenza Virus Vaccine Quad IM 3+ YRS Unknown Completed [facility] SARS-COV-2 COVID-19 PFIZER VACCINE Unknown Completed [facility] SARS-COV-2 COVID-19 PFIZER VACCINE Unknown Completed [facility] TDAP (ADACEL) VACCINE Unknown Completed [facility] Influenza Virus Vaccine Quad IM 3+ YRS Unknown Completed [facility] SARS-COV-2 COVID-19 PFIZER VACCINE Unknown Completed [facility] SARS-COV-2 COVID-19 PFIZER VACCINE Unknown Completed [facility] TDAP (ADACEL) VACCINE Unknown Completed [facility] Influenza Virus Vaccine Quad IM 3+ YRS Unknown Completed [facility] SARS-COV-2 COVID-19 PFIZER VACCINE Unknown Completed [facility] SARS-COV-2 COVID-19 PFIZER VACCINE Unknown Completed [facility] TDAP (ADACEL) VACCINE Unknown Completed [facility] Influenza Virus Vaccine Quad IM 3+ YRS Unknown Completed [facility] SARS-COV-2 COVID-19 PFIZER VACCINE Unknown Completed [facility] SARS-COV-2 COVID-19 PFIZER VACCINE Unknown Completed [facility] TDAP (ADACEL) VACCINE Unknown Completed [facility] Influenza Virus Vaccine Quad IM 3+ YRS Unknown Completed [facility] SARS-COV-2 COVID-19 PFIZER VACCINE Unknown Completed [facility] SARS-COV-2 COVID-19 PFIZER VACCINE Unknown Completed [facility] TDAP (ADACEL) VACCINE Unknown Completed [facility] Influenza Virus Vaccine Quad IM 3+ YRS Unknown Completed [facility] SARS-COV-2 COVID-19 PFIZER VACCINE Unknown Completed [facility] SARS-COV-2 COVID-19 PFIZER VACCINE Unknown Completed [facility] TDAP (ADACEL) VACCINE Unknown Completed [facility] Influenza Virus Vaccine Quad IM 3+ YRS Unknown Completed [facility] SARS-COV-2 COVID-19 PFIZER VACCINE Unknown Completed [facility] SARS-COV-2 COVID-19 PFIZER VACCINE Unknown Completed [facility] Vital Signs Vital Name Observation Time Observation Value Comments S ource Systolic blood pressure 2023-05-27 13:20:00 123 mm[Hg] [facility] Diastolic blood pressure 2023-05-27 13:20:00 83 mm[Hg] [facility] Heart rate 2023-05-27 13:20:00 65 /min [facility] Body temperature 2023-05-27 13:20:00 36.67 [facility] Body height 2023-05-27 13:20:00 170.2 cm [facility] Body weight 2023-05-27 13:20:00 99.927 kg [facility] BMI 2023-05-27 13:20:00 34.50 kg/m2 [facility] Oxygen saturation in Arterial blood by Pulse oximetry 2023-05-27 13:20:00 100 /min [facility] Systolic blood pressure 2023-05-24 20:54:00 111 mm[Hg] [facility] Diastolic blood pressure 2023-05-24 20:54:00 66 mm[Hg] [facility] Heart rate 2023-05-24 20:54:00 61 /min [facility] Body temperature 2023-05-24 20:54:00 36.06 [facility] Respiratory rate 2023-05-24 20:54:00 18 /min [facility] Body height 2023-05-24 20:54:00 170.2 cm [facility] Body weight 2023-05-24 20:54:00 100.245 kg [facility] BMI 2023-05-24 20:54:00 34.61 kg/m2 [facility] Oxygen saturation in Arterial blood by Pulse oximetry 2023-05-24 20:54:00 94 /min [facility] Systolic blood pressure 2023-03-30 16:29:00 115 mm[Hg] [facility] Diastolic blood pressure 2023-03-30 16:29:00 81 mm[Hg] [facility] Heart rate 2023-03-30 16:29:00 92 /min [facility] Body temperature 2023-03-30 16:29:00 36.56 [facility] Body height 2023-03-30 16:29:00 162.6 cm [facility] Body weight 2023-03-30 16:29:00 99.927 kg [facility] BMI 2023-03-30 16:29:00 37.81 kg/m2 [facility] Oxygen saturation in Arterial blood by Pulse oximetry 2023-03-30 16:29:00 92 /min [facility] Body height 2023-03-23 21:02:00 170.2 cm [facility] Systolic blood pressure 2023-03-02 16:35:00 109 mm[Hg] [facility] Diastolic blood pressure 2023-03-02 16:35:00 72 mm[Hg] [facility] Heart rate 2023-03-02 16:35:00 69 /min [facility] Body temperature 2023-03-02 16:35:00 36.78 [facility] [facility] Respiratory rate 2023-03-02 16:35:00 22 /min [facility] Body height 2023-03-02 16:35:00 170.2 cm Univ [facility] Body weight 2023-03-02 16:35:00 95[facility]346 [facility] BMI 2023-03-02 16:35:00 32.92 kg/m2 [facility] Oxygen saturation in Arterial blood by Pulse oximetry 2023-03-02 16:35:00 98 /min [facility] Systolic blood pressure 2023-02-26 12:58:00 120 mm[Hg] [facility] Diastolic blood pressure 2023-02-26 12:58:00 70 mm[Hg] [facility] Heart rate 2023-02-26 12:58:00 63 /min Un[facility] Body temperature 2023-02-26 12:58:00 36.61 [facility] Respiratory rate 2023-02-26 12:58:00 20 /min [facility] Oxygen saturation in Arterial blood by Pulse oximetry 2023-02-26 12:58:00 97 /min [facility] Body weight 2023-02-26 12:56:00 96.616 kg [facility] BMI 2023-02-26 12:56:00 33.36 kg/m2 [facility] Systolic blood pressure 2023-02-24 13:43:00 119 mm[Hg] [facility] Diastolic blood pressure 2023-02-24 13:43:00 76 mm[Hg] [facility] Heart rate 2023-02-24 13:43:00 75 /min [facility] Body temperature 2023-02-24 13:43:00 36.44 [facility] Respiratory rate 2023-02-24 13:43:00 18 /min [facility] Body height 2023-02-24 13:43:00 170.2 cm [facility] Body weight 2023-02-24 13:43:00 96.798 kg [facility] BMI 2023-02-24 13:43:00 33.42 kg/m2 [facility] Oxygen saturation in Arterial blood by Pulse oximetry 2023-02-24 13:43:00 98 /min [facility] Systolic blood pressure 2022-11-21 01:32:00 143 mm[Hg] [facility] Diastolic blood pressure 2022-11-21 01:32:00 84 mm[Hg] [facility] Heart rate 2022-11-21 01:32:00 87 /min [facility] Body temperature 2022-11-21 01:32:00 36.83 [facility] Respiratory rate 2022-11-21 01:32:00 18 /min [facility] Body height 2022-11-21 01:32:00 170.2 cm [facility] Body weight 2022-11-21 01:32:00 91.173 kg [facility] BMI 2022-11-21 01:32:00 31.48 kg/m2 [facility] Oxygen saturation in Arterial blood by Pulse oximetry 2022-11-21 01:32:00 100 /min [facility] Body temperature 2022-11-14 12:40:00 36.67 [facility] Body height 2022-11-14 12:00:00 170.2 cm [facility] Body weight 2022-11-14 12:00:00 92.534 kg [facility] BMI 2022-11-14 12:00:00 31.95 kg/m2 [facility] Systolic blood pressure 2022-11-14 11:58:00 136 mm[Hg] [facility] Diastolic blood pressure 2022-11-14 11:58:00 91 mm[Hg] [facility] Heart rate 2022-11-14 11:58:00 65 /min [facility] Respiratory rate 2022-11-14 11:58:00 18 /min [facility] Oxygen saturation in Arterial blood by Pulse oximetry 2022-11-14 11:58:00 98 /min [facility] Systolic blood pressure 2022-08-20 13:18:00 135 mm[Hg] [facility] Diastolic blood pressure 2022-08-20 13:18:00 88 mm[Hg] [facility] Heart rate 2022-08-20 13:18:00 91 /[facility] Body [facility] 2022-08-20 13:18:00 36 [facility] Body height 2022-08-20 13:18:00 [facility].2 [facility] weight 2022-08-20 13:18:00 87.998 kg [facility] BMI 2022-08-20 13:18:00 30.38 kg/m2 [facility] Systolic blood pressure 2022-07-28 20:20:00 114 mm[Hg] [facility] Diastolic blood pressure 2022-07-28 20:20:00 74 mm[Hg] [facility] Heart rate 2022-07-28 20:20:00 66 /min [facility] Body temperature 2022-07-28 20:20:00 35.61 [facility] Body height 2022-07-28 20:20:00 170.2 cm [facility] Body weight 2022-07-28 20:20:00 88.451 kg [facility] BMI 2022-07-28 20:20:00 30.54 kg/m2 [facility] Oxygen saturation in Arterial blood by Pulse oximetry 2022-07-28 20:20:00 99 /min [facility] Systolic blood pressure 2022-06-04 13:47:00 114 mm[Hg] [facility] Diastolic blood pressure 2022-06-04 13:47:00 81 mm[Hg] [facility] Heart rate 2022-06-04 13:47:00 76 /min [facility] Body temperature 2022-06-04 13:47:00 36.78 [facility] Respiratory rate 2022-06-04 13:47:00 18 /min [facility] Body height 2022-06-04 13:47:00 170.2 cm [facility] Body weight 2022-06-04 13:47:00 89.812 kg [facility] BMI 2022-06-04 13:47:00 31.01 kg/m2 [facility] Oxygen saturation in Arterial blood by Pulse oximetry 2022-06-04 13:47:00 99 /min [facility] Systolic blood pressure 2022-05-24 19:23:00 130 mm[Hg] [facility] Diastolic blood pressure 2022-05-24 19:23:00 92 mm[Hg] [facility] Heart rate 2022-05-24 19:23:00 69 /min [facility] Body temperature 2022-05-24 19:23:00 36.78 [facility] Respiratory rate 2022-05-24 19:23:00 16 /min [facility] Body height 2022-05-24 19:23:00 170.2 cm [facility] Body weight 2022-05-24 19:23:00 90.748 kg [facility] BMI 2022-05-24 19:23:00 31.33 kg/m2 [facility] Oxygen saturation in Arterial blood by Pulse oximetry 2022-05-24 19:23:00 99 /min [facility] Systolic blood pressure 2022-03-20 19:35:00 143 mm[Hg] [facility] Diastolic blood pressure 2022-03-20 19:35:00 94 mm[Hg] [facility] Heart rate 2022-03-20 19:35:00 70 /min [facility] Body temperature 2022-03-20 19:35:00 37.06 [facility] Respiratory rate 2022-03-20 19:35:00 20 /min [facility] Body height 2022-03-20 19:35:00 170.2 cm [facility] Body weight 2022-03-20 19:35:00 92.352 kg [facility] BMI 2022-03-20 19:35:00 31.89 kg/m2 [facility] Oxygen saturation in Arterial blood by Pulse oximetry 2022-03-20 19:35:00 100 /min [facility] Body weight 2022-03-03 21:39:00 96.163 kg [facility] BMI 2022-03-03 21:39:00 33.20 kg/m2 [facility] Oxygen saturation in Arterial blood by Pulse oximetry 2022-03-03 21:39:00 99 /min [facility] Systolic blood pressure 2022-03-03 21:39:00 131 mm[Hg] [facility] Diastolic blood pressure 2022-03-03 21:39:00 84 mm[Hg] [facility] Heart rate 2022-03-03 21:39:00 72 /min [facility] Body temperature 2022-03-03 21:39:00 36.56 [facility] Respiratory rate 2022-03-03 21:39:00 16 /min [facility] Body height 2022-03-03 21:39:00 170.2 cm Univ [facility] Systolic blood pressure 2022-01-16 22:28:00 122 mm[Hg] [facility] Diastolic blood pressure 2022-01-16 22:28:00 82 mm[Hg] [facility] Heart rate 2022-01-16 22:28:00 66 /min [facility] Body temperature 2022-01-16 22:28:00 36.39 [facility] Body height 2022-01-16 22:28:00 170.2 cm [facility] Body weight 2022-01-16 22:28:00 97.75 kg [facility] BMI 2022-01-16 22:28:00 33.75 kg/m2 [facility] Systolic blood pressure 2022-01-12 16:26:00 124 mm[Hg] [facility] Diastolic blood pressure 2022-01-12 16:26:00 83 mm[Hg] [facility] Heart rate 2022-01-12 16:26:00 64 /min [facility] Body temperature 2022-01-12 16:26:00 36.28 [facility] Body height 2022-01-12 16:26:00 170.2 cm [facility] Body weight 2022-01-12 16:26:00 95.528 kg [facility] BMI 2022-01-12 16:26:00 32.98 kg/m2 [facility] Heart rate 2022-01-07 01:30:00 80 /min [facility] Oxygen saturation in Arterial blood by Pulse oximetry 2022-01-07 01:30:00 100 /min [facility] Systolic blood pressure 2022-01-06 23:51:00 139 mm[Hg] [facility] Diastolic blood pressure 2022-01-06 23:51:00 80 mm[Hg] [facility] Body temperature 2022-01-06 23:51:00 36.94 [facility] Respiratory rate 2022-01-06 23:51:00 18 /min [facility] Body height 2022-01-06 23:51:00 170.2 cm [facility] Body weight 2022-01-06 23:51:00 95.255 kg [facility] BMI 2022-01-06 23:51:00 32.89 kg/m2 [facility] Systolic blood pressure 2021-09-26 21:26:00 105 mm[Hg] [facility] Diastolic blood pressure 2021-09-26 21:26:00 70 mm[Hg] [facility] Heart rate 2021-09-26 21:26:00 59 /min [facility] Body height 2021-09-26 21:26:00 170.2 cm [facility] Body weight 2021-09-26 21:26:00 96.026 kg [facility] BMI 2021-09-26 21:26:00 33.16 kg/m2 [facility] Systolic blood pressure 2023-03-30 16:29:00 115 mm[Hg] [facility] Diastolic blood pressure 2023-03-30 16:29:00 81 mm[Hg] [facility] Heart rate 2023-03-30 16:29:00 92 /min [facility] Body temperature 2023-03-30 16:29:00 36.56 [facility] Body height 2023-03-30 16:29:00 162.6 cm [facility] Body weight 2023-03-30 16:29:00 99.927 kg [facility] BMI 2023-03-30 16:29:00 37.81 kg/m2 [facility] Oxygen saturation in Arterial blood by Pulse oximetry 2023-03-30 16:29:00 92 /min [facility] Respiratory rate 2023-03-02 16:35:00 22 /min [facility] Systolic blood pressure 2022-09-17 14:41:00 123 mm[Hg] [facility] Diastolic blood pressure 2022-09-17 14:41:00 81 mm[Hg] [facility] Heart rate 2022-09-17 14:41:00 59 /min [facility] Res[facility] 2022-09-17 14:41:00 20 /min [facility] Body height 2022-09-17 14:41:00 170.2 cm [facility] Body weight 2022-09-17 14:41:00 88.451 kg [facility] BMI 2022-09-17 14:41:00 30.54 kg/m2 [facility] Body temperature 2022-08-20 13:18:00 36 [facility] Oxygen saturation in Arterial blood by Pulse oximetry 2022-07-28 20:20:00 99 /min [facility] Systolic blood pressure 2022-07-02 19:34:00 132 mm[Hg] [facility] Diastolic blood pressure 2022-07-02 19:34:00 88 mm[Hg] [facility] Heart rate 2022-07-02 19:34:00 92 /min [facility] Respiratory rate 2022-07-02 19:34:00 18 /min [facility] Body height 2022-07-02 19:34:00 170.2 cm [facility] Body weight 2022-07-02 19:34:00 88.905 kg [facility] BMI 2022-07-02 19:34:00 30.70 kg/m2 [facility] Body temperature 2022-06-04 13:47:00 36.78 [facility] Oxygen saturation in Arterial blood by Pulse oximetry 2022-06-04 13:47:00 99 /min [facility] Procedures Procedure Date / Time Performed Performing Clinician Source POCT URINALYSIS AUTO 2023-05-24 21:04:00 Leon Arvizu [facility] POCT TEST 2023-05-24 21:00:00 Juan Arvizu [facility] PATIENT FINANCIAL POLICY 2023-05-24 20:39:07 Doctor Unassigned, [place] [facility] POCT SARS-COV-2 ANTIGEN (BINAX NOW) 2023-03-30 17:09:00 Wur [facility] POCT SARS-COV-2 ANTIGEN (BINAX NOW) 2023-03-30 17:09:00 Wur, [facility] POCT MOLECULAR STREP 2023-03-30 17:07:00 Wur, [facility] POCT MOLECULAR STREP 2023-03-30 17:07:00 Wur, [facility] POCT MOLECULAR FLU 2023-03-30 16:48:00 [facility]LECULAR FLU 2023-03-30 16:48:00 WurEitan Un [facility] POCT TEST 2023-03-30 00:00:00 WuEitan altman [facility] POCT TEST 2023-03-30 00:00:00 WurEitan [facility] POCT MOLECULAR FLU 2023-03-02 16:46:00 Unknown, Attend [facility] POCT MOLECULAR FLU 2023-03-02 16:46:00 Unknown, Attend [facility] POCT MOLECULAR STREP 2023-03-02 16:43:00 Unknown, Attmookie [facility] POCT MOLECULAR STREP 2023-03-02 16:43:00 [facility] PO[facility] SARS-COV-2 ANTIGEN (BINAX NOW) 2023-03-02 16:40:00 Negin Garcia [facility] POCT SARS-COV-2 ANTIGEN (BINAX NOW) 2023-03-02 16:40:00 Negin Garcia [facility] ASSIGNMENT OF BENEFITS 2023-03-02 16:25:23 Docto r Unassigned, [place] [facility] URINALYSIS 2023-02-26 15:32:00 Zhou Liz [facility] URINALYSIS 2023-02-26 15:32:00 Zhou Liz [facility] XR ABDOMEN 1 VW 2023-02-26 14:31:53 Yadiel Kennedy [facility] XR ABDOMEN 1 VW 2023-02-26 14:31:53 Yadiel Kennedy [facility] TEST, SERUM 2023-02-26 13:31:00 Zhou Liz [facility] HEPATIC FUNCTION PANEL ([id number]) (ALB,T.PRO,BILI T,BU/BC,ALT,AST,ALK PHOS) 2023-02-26 13:31:00 Zhou Liz [facility] BASIC METABOLIC PANEL (NA, K, CL, CO2, GLUCOSE, BUN, CREATININE, CA) 2023-02-26 13:31:00 Zhou Liz [facility] CBC WITH DIFF 2023-02-26 13:31:00 Zhou Liz [facility] EXTRA TUBE LT. GREEN 2023-02-26 13:31:00 Zhou Liz [facility] CBC WITH DIFF 2023-02-26 13:31:00 Zhou Liz [facility] BASIC METABOLIC PANEL (NA, K, CL, CO2, GLUCOSE, BUN, CREATININE, CA) 2023-02-26 13:31:00 Zhou Liz [facility] HEPATIC FUNCTION PANEL ([id number]) (ALB,T.PRO,BILI T,BU/BC,ALT,AST,ALK PHOS) 2023-02-26 13:31:00 Zhou Liz [facility] TEST, SERUM 2023-02-26 13:31:00 Zhou Liz [facility] EXTRA TUBE LT. GREEN 2023-02-26 13:31:00 Zhou Liz [facility] CONSENT/REFUSAL FOR DIAGNOSIS AND TREATMENT 2023-02-26 12:54:03 Doctor Unassigned, [place] [facility] CONSENT/REFUSAL FOR DIAGNOSIS AND TREATMENT 2023-02-26 12:54:03 Doctor Unassigned, [place] [facility] EMERGENCY SERVICES AGREEMENTS AND AUTHORIZATIONS 2023-02-26 06:01:00 Doctor Unassigned, [place] [facility] GALV ONLY - VAGINAL PATHOGENS BY NUCLEIC ACID TESTING 2023-02-24 14:16:00 HumanMaryanne [facility] SYPHILIS IGG/IGM 2023-02-24 14:16:00 Maryanne Flores [facility] HCV ANTIBODY 2023-02-24 14:16:00 [facility] HEPATITIS B SURFACE ANTIGEN 2023-02-24 14:16:00 Maryanne Flores [facility] HIV 1/2 AG-AB WITH REFLEX 2023-02-24 14:16:00 Aure Flores [facility] GC, CHLAMYDIA, & M. GENITALIUM AMPLIFIED ASSAY 2023-02-24 14:16:00 Maryanne Flores [facility] POCT MOLECULAR FLU 2022-11-21 01:50:00 Unknown, Attend [facility] POCT MOLECULAR STREP 2022-11-21 01:39:00 Unknown, Atte kate [facility] POCT TEST 2022-11-14 12:42:00 Fauzia Ruiz [facility] COVID-19 (ID NOW RAPID TESTING) 2022-11-14 12:29:00 Fauzia Ruiz [facility] CONSENT/REFUSAL FOR DIAGNOSIS AND TREATMENT 2022-11-14 11:53:54 Doctor Unassigned, [place] [facility] BI SCREENING TOMOSYNTHESIS BILATERAL 2022-08-25 17:34:29 Maggy Falcon [facility] BI SCREENING TOMOSYNTHESIS BILATERAL 2022-08-25 17:34:29 Maggy Falcon [facility] TOTAL BETA HCG ASSAY 2022-08-20 14:16:00 Mary Ro[facility] HEPATITIS B SURFACE ANTIGEN 2022-08-20 14:16:00 [facility] HCV ANTIBODY 2022-08-20 14:16:00 [facility] HIV 1/2 AG-AB WITH REFLEX 2022-08-20 14:16:00 Elias Davila [facility] SYPHILIS IGG/IGM 2022-08-20 14:16:00 Arina ortiz [facility] HIV 1/2 AG-AB WITH REFLEX 2022-08-20 14:16:00 Elias Davila [facility] SYPHILIS IGG/IGM 2022-08-20 14:16:00 Arina ortiz [facility] HEPATITIS B SURFACE ANTIGEN 2022-08-20 14:16:00 [facility] HCV ANTIBODY 2022-08-20 14:16:00 [facility] TOTAL BETA HCG ASSAY 2022-08-20 14:16:00 Mary Roque [facility] GC & CHLAMYDIA AMPLIFIED ASSAY 2022-08-20 14:07:00 [facility] LAB ONLY PAP SMEAR-LIQUID BASED 2022-08-20 14:07:00 [facility] GALV ONLY - VAGINAL PATHOGENS BY NUCLEIC ACID TESTING 2022-08-20 14:07:00 [facility] HIGH RISK HPV-THIN PREP 2022-08-20 14:07:00 Leander Guerra [facility] TRICHOMONAS AMPLIFIED ASSAY 2022-08-20 14:07:00 [facility] PAP SMEAR-LIQUID BASED-CP 2022-08-20 14:07:00 Elias Davila [facility] PAP SMEAR-LIQUID BASED-CP 2022-08-20 14:07:00 Elias Davila [facility] HIGH RISK HPV-THIN PREP 2022-08-20 14:07:00 Leander Guerra [facility] GC & CHLAMYDIA AMPLIFIED ASSAY 2022-08-20 14:07:00 [facility] TRICHOMONAS AMPLIFIED ASSAY 2022-08-20 14:07:00 [facility] GALV ONLY - VAGINAL PATHOGENS BY NUCLEIC ACID TESTING 2022-08-20 14:07:00 [facility] LAB ONLY PAP SMEAR-LIQUID BASED 2022-08-20 14:07:00 [facility] POCT TEST 2022-08-20 00:00:00 Melinda carreon [facility] POCT URINALYSIS AUTO 2022-08-20 00:00:00 Mary Roque [facility] POCT TEST 2022-08-20 00:00:00 Melinda carreon [facility] POCT URINALYSIS AUTO 2022-08-20 00:00:00 Mary Roque [facility] VITAMIN B12, LEVEL 2022-07-29 14:48:00 Weeks, De lilia [facility] IRON PANEL 2022-07-29 14:48:00 Weeks, Astrid altman [facility] PREALBUMIN, SERUM 2022-07-29 14:48:00 Weeks, Ahmet chung [facility] GLYCOSYLATED HEMOGLOBIN (A1C) 2022-07-29 14:48:00 Weeks, Liborio [facility] COMP. METABOLIC PANEL ([id number]) 2022-07-29 14:48:00 Weeks, Liborio [facility] CBC WITH DIFF 2022-07-29 14:48:00 Weeks, Astrid altman [facility] PATIENT INFORMATION 2022-07-02 05:01:00 Doctor Unassigned, [place] [facility] PS[facility]CHIATRY CLINIC PATIENT INFORMATION 2022-07-02 05:01:00 Doctor Unassigned, [place] [facility] AUTHORIZATION FOR RELEASE OF PHI 2022-07-02 05:01:00 Doctor Unassigned, [place] [facility] POCT MOLECULAR FLU 2022-06-04 14:02:00 Olvera[facility] POCT MOLECULAR FLU 2022-06-04 14:02:00 Ramiro [facility] COVID-19 (MOLECULAR TESTING NUCLEIC ACID AMPLIFICATION) 2022-06-04 14:01:00 Ramiro Olvera [facility] LAB ONLY COVID INTERPRETATION 2022-06-04 14:01:00 Ramior Olvera [facility] PATIENT FINANCIAL POLICY 2022-05-24 19:17:47 Doctor Unassigned, [place] [facility] PATIENT FINANCIAL POLICY 2022-05-24 19:17:47 Doctor Unassigned, [place] [facility] POCT TEST 2022-01-12 18:20:00 Ruby Lopez [facility] GC & CHLAMYDIA AMPLIFIED ASSAY 2022-01-12 17:24:00 Ruby Menjivar [facility] VITAMIN B12, LEVEL 2022-01-12 17:04:00 Abhishek Leonard [facility] FERRITIN SERUM 2022-01-12 17:04:00 Abhishek Leonard [facility] FOLATE 2022-01-12 17:04:00 Abhishek Leonard [facility] TOTAL IRON BINDING CAPACITY 2022-01-12 17:04:00 Abhishek Leonard [facility] THYROID STIMULATING HORMONE 2022-01-12 17:04:00 Ruby Menjivar [facility] IRON PANEL 2022-01-12 17:04:00 Abhishek Leonard [facility] CBC WITH DIFF 2022-01-12 17:04:00 Mookie Menjivar [facility] CT ABDOMEN PELVIS W CONTRAST 2022-01-07 01:04:36 Paz Colon [facility] POCT TEST 2022-01-07 00:50:00 Paz Colon [facility] BASIC METABOLIC PANEL (NA, K, CL, CO2, GLUCOSE, BUN, CREATININE, CA) 2022-01-07 00:49:00 Paz Colon [facility] CBC WITH DIFF 2022-01-07 00:49:00 Paz Colon [facility] URINALYSIS 2022-01-07 00:49:00 Paz Colon [facility] CONSENT/REFUSAL FOR DIAGNOSIS AND TREATMENT 2022-01-06 23:31:16 Doctor Unassigned, [place] [facility] GC & CHLAMYDIA AMPLIFIED ASSAY 2021-09-26 21:53:00 Delma Hartman [facility] GALV ONLY - VAGINAL PATHOGENS BY NUCLEIC ACID TESTING 2021-09-26 21:53:00 Delma Hartman [facility] Encounters Start Date/Time End Date/Time Encounter Type Admission Type Attending [facility] Care Facility Care Department Encounter ID Source 2021-01-13 07:37:41 Outpatient VERONICA FLOOD [facility] [id number] [facility] 2021-01-03 12:44:43 Outpatient VERONICA ZHENG [facility] [id number] [facility] 2023-06-10 00:00:00 2023-06-10 00:00:00 Telephone Ruby Menjivar [facility] 1..840.114 350.1.13.10 [id number] [id number] [facility] 2023-06-08 13:30:00 2023-06-08 14:13:06 Outpatient RUBY DIAZ [facility] [id number] [facility] 2023-05-27 08:00:00 2023-05-27 09:10:58 Outpatient R TOBIAS ROUSE [facility] [id number] [facility] 2023-05-27 08:00:00 2023-05-27 09:10:58 Office Visit Tobias Rouse [facility] 1..840.114 350.1.13.10 4.2.7.2.686 [id number] [facility] 2023-05-26 10:00:00 2023-05-26 11:04:17 Outpatient RUBY DIAZ [facility] [id number] [facility] 2023-05-24 16:00:00 2023-05-24 16:30:00 Office Visit Florina Arvizu [facility] 1.0.114 350.1.13.10 4.2.7.2.686 [id number] [facility] 2023-05-24 16:00:00 2023-05-24 16:00:00 Outpatient R FLORINA ARVIZU [facility] [id number] [facility] 2023-05-24 15:30:00 2023-05-24 15:30:00 Outpatient R ANDREW MATAMOROS [facility] [id number] [facility] 2023-05-24 00:00:00 2023-05-24 00:00:00 Orders Only Doctor Unassigned, [place] [facility] 1..114 350.1.13.10 4.2.7.2.686 [id number] [facility] 2023-05-12 00:00:00 2023-05-12 00:00:00 Telephone Ruby Menjivar [facility] 1..114 350.1.13.10 4.2.7.2.686 [id number] [facility] 2023-05-03 00:00:00 2023-05-03 00:00:00 Refill Fatimah Royal [facility] ..114 350.1.13.10 4.2.7.2.686 [id number] [facility] 2023-04-30 00:00:00 2023-04-30 00:00:00 Refill Ramiro Olvera [facility] 1..114 350.1.13.10 4.2.7.2.686 [id number] [facility] 2023-04-30 00:00:00 2023-04-30 00:00:00 Cecilia Ramiro Olvera [facility] [id number] 350.1.13.10 4.2.7.2.686 [id number] [facility] 2023-04-29 00:00:00 2023-04-29 00:00:00 Millyzo Olvera Ramiro [facility] 1.2.840.114 350.1.13.10 4.2.7.2.686 [id number] [facility] 2023-03-30 11:10:00 2023-03-30 11:16:43 Outpatient R [facility]AN [facility] [id number] [facility] 2023-03-30 11:10:00 2023-03-30 11:16:43 Office Visit Eitan Newell 1.2.840.1 67643.1.1 3.104.2.7 .3.924561 .8 [id number] [facility] 2023-03-30 00:00:00 2023-03-30 00:00:00 Telephone Eitan Newell 1.2.840.1 53145.1.1 3.104.2.7 .3.176069 .8 [id number] [facility] 2023-03-30 00:00:00 2023-03-30 00:00:00 Travel 1.2.840.1 26389.1.1 3.104.2.7 .3.242286 .8 1.2.840.114 350.1.13.10 4.2.7.3.698 084.8 [id number] [facility] 2023-03-23 15:00:00 2023-03-23 15:41:22 Outpatient R [facility]EE [facility] [id number] [facility] 2023-03-23 15:00:00 2023-03-23 15:41:22 Office Visit Shawnee GreyFatimah guerrero 1.2.840.1 88479.1.1 3.104.2.7 .3.975697 .8 [id number] [facility] 2023-03-23 00:00:00 2023-03-23 00:00:00 Travel 1.2.840.1 51608.1.1 3.104.2.7 .3.387913 .8 1.2.840.114 350.1.13.10 4.2.7.3.698 084.8 [id number] [facility] 2023-03-06 00:00:00 2023-03-06 00:00:00 Refill Ramiro Olvera 1.2.840.1 43530.1.1 3.104.2.7 .3.056020 .8 [id number] [facility] 2023-03-02 10:30:00 2023-03-02 11:08:48 Outpatient R A[facility]XA [facility]O [facility] [id number] [facility] 2023-03-02 10:30:00 2023-03-02 11:08:48 Urgent Care Unknown, Attending Alexa Pizarro 1.2.840.1 79101.1.1 3.104.2.7 .3.875418 .8 [id number] [facility] 2023-03-02 00:00:00 2023-03-02 00:00:00 Travel 1.2.840.1 12442.1.1 3.104.2.7 .3.676280 .8 1.2.840.114 350.1.13.10 4.2.7.3.698 084.8 [id number] [facility] 2023-02-26 06:59:00 2023-02-26 10:52:00 Emergency X YADIEL KENNEDY [facility] ERT [id number] [facility] 2023-02-26 06:59:00 2023-02-26 10:52:00 Emergency Yadiel Kennedy 1.2.840.1 96602.1.1 3.104.2.7 .3.717947 .8 [id number] [facility] 2023-02-26 00:00:00 2023-02-26 00:00:00 Patient Secure Msg Maryanne Flores 1.2.840.1 02250.1.1 3.104.2.7 .3.240789 .8 [id number] [facility] 2023-02-26 00:00:00 2023-02-26 00:00:00 Travel 1.2.840.1 44695.1.1 3.104.2.7 .3.136673 .8 1.2.840.114 350.1.13.10 4.2.7.3.698 084.8 [id number] [facility] 2023-02-24 07:30:00 2023-02-24 08:11:08 Outpatient R MARYANNE FLORES [facility] [id number] [facility] 2023-02-24 07:30:00 2023-02-24 08:11:08 Office Visit Maryanne Flores 1.2.840.1 18654.1.1 3.104.2.7 .3.123137 .8 [id number] [facility] 2023-02-24 00:00:00 2023-02-24 00:00:00 Refill GrowMartinia Rose Mary 1.2.840.1 05706.1.1 3.104.2.7 .3.806502 .8 [id number] [facility] 2023-02-24 00:00:00 2023-02-24 00:00:00 Refill Grow, Zoey Rose Mary 1.2.840.1 44467.1.1 3.104.2.7 .3.033754 .8 [id number] [facility] 2023-02-24 00:00:00 2023-02-24 00:00:00 Travel 1.2.840.1 43268.1.1 3.104.2.7 .3.091549 .8 1.2.840.114 350.1.13.10 4.2.7.3.698 084.8 [id number] [facility] 2023-02-17 00:00:00 2023-02-17 00:00:00 Ramiro Cabral 1.2.840.1 24265.1.1 3.104.2.7 .3.398019 .8 [id number] [facility] 2023-02-10 00:00:00 2023-02-10 00:00:00 Ramiro Cabral 1.2.840.1 42723.1.1 3.104.2.7 .3.435685 .8 [id number] [facility] 2023-01-24 00:00:00 2023-01-24 00:00:00 Ramiro Cabral [facility] 1.2.840.114 350.1.13.10 4.2.7.2.686 [id number] [facility] 2022-12-03 00:00:00 2022-12-03 00:00:00 Darby Sims [facility] [place] 1.2.840.114 350.1.13.10 4.2.7.2.686 [id number] [facility] 2022-11-20 20:00:00 2022-11-20 20:50:37 Outpatient R ZOEY VERMA [facility] [id number] [facility] 2022-11-20 20:00:00 2022-11-20 20:50:37 Urgent Care Zoey VermaColby [facility] 1.2.840.114 350.1.13.10 4.2.7.2.686 [id number] [facility] 2022-11-14 07:01:00 2022-11-14 08:30:00 Emergency X FAUZIA RUIZ [facility] [id number] [facility] 2022-11-14 07:01:00 2022-11-14 08:30:00 Emergency Fauzia Ruiz A [facility] 1.2.840.114 350.1.13.10 4.2.7.2.686 [id number] [facility] 2022-10-19 00:00:00 2022-10-19 00:00:00 Tamy Onofre [facility] 1.2.840.114 350.1.13.10 4.2.7.2.686 [id number] [facility] 2022-09-29 00:00:00 2022-09-29 00:00:00 Ramiro Cabral 1.2.840.1 40451.1.1 3.104.2.7 .3.681292 .8 [id number] [facility] 2022-09-17 10:45:00 2022-09-17 10:46:44 Outpatient JAKY DUVAL [facility] [id number] [facility] 2022-09-17 00:00:00 2022-09-17 00:00:00 Travel 1.2.840.1 22444.1.1 3.104.2.7 .3.643354 .8 1.2.840.114 350.1.13.10 4.2.7.3.698 084.8 [id number] [facility] 2022-09-15 15:40:00 2022-09-15 15:40:00 Outpatient RAMIRO [facility]INEZ [facility] [id number] [facility] 2022-09-03 08:45:00 2022-09-03 08:45:00 Outpatient R BISHOPJAKY [facility] [id number] [facility] 2022-08-26 00:00:00 2022-08-26 00:00:00 Patient Secure g [facility]egin[facility]Eddie [facility] OD 1.2.840.114 350.1.13.10 4.2.7.2.686 [id number] [facility] 2022-08-25 11:49:28 2022-08-25 23:59:00 Out[facility] [id number] [facility] 2022-08-25 11:49:28 2022-08-25 23:59:00 Hospital Encounter Maggy Garcia 1.2.840.1 85489.1.1 3.104.2.7 .3.776016 .8 [id number] [facility] 2022-08-21 00:00:00 2022-08-21 00:00:00 Patient Secure FrankZafar Bernardleobardokayleigh 1.2.840.1 81081.1.1 3.104.2.7 .3.314779 .8 [id number] [facility] 2022-08-20 08:30:00 2022-08-20 09:21:26 Outpatient [facility] [id number] [facility] 2022-08-20 08:30:00 2022-08-20 09:21:26 [facility] OD 1..840.114 350.1.13.10 4.2.7.2.686 [id number] [facility] 2022-08-20 00:00:00 2022-08-20 00:00:00 Travel 1.2.840.1 93481.1.1 3.104.2.7 .3.263081 .8 1.2.840.114 350.1.13.10 4.2.7.3.698 084.8 [id number] [facility] 2022-08-17 00:00:00 2022-08-17 00:00:00 Pre Visit Outreach Dyan Merrill 1.2.840.1 40292.1.1 3.104.2.7 .3.867370 .8 [id number] [facility] 2022-08-14 13:30:00 2022-08-14 13:30:00 Outpatient R MAGGY GARCIA [facility] [id number] [facility] 2022-08-13 00:00:00 2022-08-13 00:00:00 RefTamy Flores 1.2.840.1 88773.1.1 3.104.2.7 .3.238779 .8 [id number] [facility] 2022-08-12 00:00:00 2022-08-12 00:00:00 Pre Visit Outreach Dyan Merrill 1.2.840.1 79150.1.1 3.104.2.7 .3.501085 .8 [id number] [facility] 2022-08-05 00:00:00 2022-08-05 00:00:00 Telephone Darby Moss 1.2.840.1 11990.1.1 3.104.2.7 .3.593966 .8 [id number] [facility] 2022-08-04 00:00:00 2022-08-04 00:00:00 RefDarby Carlson 1.2.840.1 40977.1.1 3.104.2.7 .3.746702 .8 [id number] [facility] 2022-07-29 09:45:00 2022-07-29 10:00:00 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 Tanya Diaz [facility] 1.2.840.1 50730.1.1 3.104.2.7 .3.074186 .8 [id number] [facility] 2022-07-29 09:45:00 2022-07-29 09:45:00 Outpatient TANYA DORSEY [facility] [id number] [facility] 2022-07-28 15:45:00 2022-07-28 16:00:00 Office Visit Tanya Diaz 1.2.840.1 54502.1.1 3.104.2.7 .3.334650 .8 [id number] [facility] 2022-07-28 15:45:00 2022-07-28 15:45:00 Outpatient TANYA DORSEY [facility] [id number] [facility] 2022-07-28 00:00:00 2022-07-28 00:00:00 Travel 1.2.840.1 26501.1.1 3.104.2.7 .3.898510 .8 1.2.840.114 350.1.13.10 4.2.7.3.698 084.8 [id number] [facility] 2022-07-02 14:15:00 2022-07-02 16:05:40 Outpatient JAKY DUVAL [facility] [id number] [facility] 2022-07-02 00:00:00 2022-07-02 00:00:00 Travel 1.2.840.1 06042.1.1 3.104.2.7 .3.844627 .8 1.2.840.114 350.1.13.10 4.2.7.3.698 084.8 [id number] [facility] 2022-07-02 00:00:00 2022-07-02 00:00:00 Orders Only Doctor Unassigned, [place] 1.2.840.1 64921.1.1 3.104.2.7 .3.240165 .8 [id number] [facility] 2022-06-17 15:00:00 2022-06-17 15:00:00 Outpatient ABHISHEK GALAVIZ [facility] [id number] [facility] 2022-06-17 00:00:00 2022-06-17 00:00:00 Telephone Ramiro Olvera 1.2.840.1 10034.1.1 3.104.2.7 .3.361460 .8 [id number] [facility] 2022-06-17 00:00:00 2022-06-17 00:00:00 Telephone Veronica Zheng 1.2.840.1 96051.1.1 3.104.2.7 .3.590219 .8 [id number] [facility] 2022-06-17 00:00:00 2022-06-17 00:00:00 Patient Secure Msg Horacio [facility] 1.2.840.114 350.1.13.10 4.2.7.2.686 [id number] [facility] 2022-06-04 09:00:00 2022-06-04 10:08:03 Outpatient RAMIRO GODINEZ [facility] [id number] [facility] 2022-06-04 09:00:00 2022-06-04 10:08:03 Office Visit Ramiro Olvera 1.2.840.1 40850.1.1 3.104.2.7 .3.375744 .8 [id number] [facility] 2022-06-04 00:00:00 2022-06-04 00:00:00 Travel 1.2.840.1 44017.1.1 3.104.2.7 .3.358175 .8 1.2.840.114 350.1.13.10 4.2.7.3.698 084.8 [id number] [facility] 2022-05-24 14:15:00 2022-05-24 14:51:15 Outpatient R TAMY HERNANDEZ [facility] [id number] [facility] 2022-05-24 14:15:00 2022-05-24 14:51:15 Urgent Care Unknown, Attending Tamy Hernandez 1.2.840.1 18836.1.1 3.104.2.7 .3.109168 .8 [id number] [facility] 2022-05-24 00:00:00 2022-05-24 00:00:00 Orders Only Doctor Unassigned, [place] 1.2.840.1 38896.1.1 3.104.2.7 .3.793222 .8 [id number] [facility] 2022-05-24 00:00:00 2022-05-24 00:00:00 Letter (Out) Tamy Hernandez 1.2.840.1 41560.1.1 3.104.2.7 .3.973887 .8 [id number] [facility] 2022-05-24 00:00:00 2022-05-24 00:00:00 Travel 1.2.840.1 54972.1.1 3.104.2.7 .3.048217 .8 1.2.840.114 350.1.13.10 4.2.7.3.698 084.8 [id number] [facility] 2022-03-20 13:15:00 2022-03-20 13:47:10 Outpatient R YOLIS VILLA [facility] [id number] [facility] 2022-03-20 13:15:00 2022-03-20 13:47:10 Urgent Care Yolis Villa Unknown, Attending [facility] 1.2.840.114 350.1.13.10 4.2.7.2.686 [id number] [facility] 2022-03-05 11:15:00 2022-03-05 11:15:00 Outpatient ABHISHEK GALAVIZ [facility] [id number] [facility] 2022-03-03 15:40:00 2022-03-03 17:11:53 Outpatient RAMIRO GODINEZ [facility] [id number] Kelli s [facility] 2022-03-03 15:40:00 2022-03-03 17:11:53 Office Visit Ramiro Olvera [facility] [place] [facility] 1..840.114 350.1.13.10 4.2.7.2.686 [id number] [facility] 2022-02-03 10:30:00 2022-02-03 10:45:00 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, [facility] Susanne Holland [facility] 1..840.114 350.1.13.10 4.2.7.2.686 [id number] [facility] 2022-02-03 10:30:00 2022-02-03 10:30:00 Outpatient SUSANNE ARGUETA [facility] [id number] [facility] 2022-02-03 10:00:00 2022-02-03 10:00:00 Outpatient RUBY DIAZ [facility] [id number] [facility] 2022-02-02 16:30:00 2022-02-02 16:30:00 Outpatient ABHISHEK GALAVIZ [facility] [id number] [facility] 2022-01-19 16:45:00 2022-01-19 16:45:00 Outpatient ABHISHEK GALAVIZ [facility] [id number] [facility] 2022-01-19 10:15:00 2022-01-19 10:15:00 Outpatient ABHISHEK GALAVIZ [facility] [id number] [facility] 2022-01-16 16:15:00 2022-01-16 16:45:00 Office Visit Abhishek Leonard [facility] 1..840.114 350.1.13.10 4.2.7.2.686 [id number] [facility] 2022-01-16 16:15:00 2022-01-16 16:15:00 Outpatient R ABHISHEK LEONARD [facility] [id number] [facility] 2022-01-14 15:30:00 2022-01-14 15:30:00 Outpatient R DARBY MOSS [facility] [id number] [facility] 2022-01-12 14:30:00 2022-01-12 14:30:00 Outpatient RUBY DIAZ [facility] [id number] [facility] 2022-01-12 10:30:00 2022-01-12 11:08:54 Outpatient RUBY DIAZ [facility] [id number] [facility] 2022-01-12 10:30:00 2022-01-12 11:08:54 Office Visit Ruby Menjivar [facility] 1..840.114 350.1.13.10 4.2.7.2.686 [id number] [facility] 2022-01-11 08:34:58 2022-01-11 23:59:00 Outpatient R DARBY MOSS [facility] [id number] [facility] 2022-01-11 08:34:58 2022-01-11 23:59:00 Hospital Encounter Darby Moss [facility] [place] [facility] 1..840.114 350.1.13.10 4.2.7.2.686 [id number] [facility] 2022-01-07 00:00:00 2022-01-07 00:00:00 Telephone Darby Moss [facility] OD 1.840.114 350.1.13.10 4.2.7.2.686 [id number] [facility] 2022-01-06 18:51:00 2022-01-06 21:26:00 Emergency Emilio RUIZFAUZIA [facility] ERT [id number] [facility] 2022-01-06 18:51:00 2022-01-06 21:26:00 Emergency Cecil Paz Fauzia Hernandes [facility] ([facility]) 1..114 350.1.13.10 4.2.7.2.686 [id number] [facility] 2021-10-22 12:30:00 2021-10-22 12:30:00 Outpatient AUGUST ARRIAZA [facility] [id number] [facility] 2021-09-26 16:00:00 2021-09-26 17:10:52 Outpatient R DELMA HARTMAN [facility] [id number] [facility] 2021-09-26 16:00:00 2021-09-26 17:10:52 Office Visit Delma Hartman 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 [place] [facility] [place] [facility] 1.114 350.1.13.10 4.2.7.2.686 [id number] [facility] 2021-09-03 11:15:00 2021-09-03 11:32:33 Outpatient R [facility] [id number] [facility] 2021-08-25 00:00:00 2021-08-25 00:00:00 Letter (Out) Janiya Woody [facility] 1.114 350.1.13.10 4.2.7.2.686 [id number] [facility] 2021-08-24 10:30:00 2021-08-24 10:57:17 Outpatient R CHERI MARIE [facility] [id number] [facility] 2021-08-24 10:30:00 2021-08-24 10:45:00 Urgent Care Cheri Marie Unknown, Attending [facility] 1.114 350.1.13.10 4.2.7.2.686 [id number] [facility] 2021-08-11 00:00:00 2021-08-11 00:00:00 Telephone Darby Moss [facility] [place] [facility] 1.2.840.114 350.1.13.10 4.2.7.2.686 [id number] [facility] 2021-08-09 00:00:00 2021-08-09 00:00:00 Refill Darby Moss [facility] 1.2.840.114 350.1.13.10 4.2.7.2.686 [id number] [facility] 2021-08-06 13:00:00 2021-08-06 14:15:21 Outpatient DARBY OSWALD [facility] [id number] [facility] 2021-08-06 13:00:00 2021-08-06 13:30:00 Office Visit Darby Moss [facility] 1.2.840.114 350.1.13.10 4.2.7.2.686 [id number] [facility] 2021-08-06 13:00:00 2021-08-06 13:00:00 Outpatient DARBY OSWALD [facility] [id number] [facility] 2021-08-06 13:00:00 2021-08-06 13:00:00 Outpatient DARBY OSWALD [facility] [id number] [facility] 2021-07-08 11:40:00 2021-07-08 12:00:00 Office Visit Ramiro Olvera [facility] 1.2840.114 350.1.13.10 4.2.7.2.686 [id number] [facility] 2021-07-08 11:40:00 2021-07-08 11:40:00 Outpatient RAMIRO GODINEZ [facility] [id number] [facility] 2021-06-03 11:15:00 2021-06-03 12:22:15 Outpatient R ABHISHEK LEONARD [facility] [id number] [facility] 2021-06-03 11:15:00 2021-06-03 12:22:15 Office Visit Abhishek Leonard [facility] [place] [facility] 1.2840.114 350.1.13.10 4.2.7.2.686 [id number] [facility] 2021-06-03 11:15:00 2021-06-03 12:22:15 Outpatient R ABHISHEK LEONARD [facility] [id number] [facility] 2021-03-25 16:45:00 2021-03-25 17:26:35 [id number] 2021-03-25 16:45:00 2021-03-25 17:26:35 Office Visit Marec [facility] [place] [facility] 1.0.114 350.1.13.10 4.2.7.2.686 [id number] [facility] 2021-03-07 11:00:00 2021-03-07 11:00:00 Outpatient R VERONICA ZHENG [facility] [id number] [facility] 2021-03-05 23:40:00 2021-03-06 00:10:00 Emergency X FAUZIA RUIZ [facility] E[facility] [id number] [facility] 2021-03-05 23:40:00 2021-03-06 00:10:00 Emergency Fauzia Ruiz A [facility] ([facility]) 1.840.114 350.1.13.10 4.2.7.2.686 [id number] [facility] 2021-02-28 00:00:00 2021-02-28 00:00:00 Letter (Out) Janiya Woody [facility] 1.840.114 350.1.13.10 4.2.7.2.686 [id number] [facility] 2021-02-27 10:00:00 2021-02-27 11:33:53 Outpatient R MICHAEL BARRIENTOS [facility] [id number] [facility] 2021-02-27 10:00:00 2021-02-27 10:15:00 Laboratory Only Only, Lcc Uc Test Unknown, Attending [facility] 1.2.840.114 350.1.13.10 4.2.7.2.686 [id number] [facility] 2021-02-27 10:00:00 2021-02-27 10:00:00 Outpatient R UNKNOWN, ATTENDING [facility] [id number] [facility] 2021-02-20 13:01:00 2021-02-21 17:45:00 Outpatient R [facility]CE [facility] [id number] [facility] 2021-02-20 13:01:00 2021-02-21 17:45:[address] [facility] 1.2840.114 350.1.13.10 4.2.7.2.686 [id number] [facility] 2021-02-20 13:01:00 2021-02-21 17:45:00 Outpatient R [facility] [id number] [facility] 2021-02-20 15:25:00 2021-02-20 19:02:[address] [facility] 1.2.840.114 350.1.13.10 4.2.7.2.686 [id number] [facility] 2021-02-20 00:00:00 2021-02-20 00:00:00 Orders Only Doctor Unassigned, [place] [facility] 1.2.840.114 350.1.13.10 4.2.7.2.686 [id number] [facility] 2021-02-07 08:46:00 2021-02-07 09:09:00 Emergency X CUBA BRAGA [facility] [id number] [facility] 2021-02-07 08:46:00 2021-02-07 09:09:[address] [facility] ([facility]) 1.2840.114 350.1.13.10 4.2.7.2.686 [id number] [facility] 2021-01-10 00:00:00 2021-01-10 00:00:00 Telephone Mar[facility] 1.2840.114 350.1.13.10 4.2.7.2.686 [id number] [facility] 2021-01-03 11:00:00 2021-01-03 12:45:53 [id number] 2021-01-03 11:00:00 2021-01-03 12:45:53 [id number] 2021-01-03 10:53:55 2021-01-03 12:45:53 Office Visit Marce [facility] 1.2840.114 350.1.13.10 4.2.7.2.686 [id number] [facility] 2020-12-23 13:54:10 2020-12-23 23:59:00 Hospital Encounter Abhishek Leonard [facility] ([facility]) 1.2.840.114 350.1.13.10 4.2.7.2.686 [id number] [facility] 2020-12-23 15:45:00 2020-12-23 17:12:24 Outpatient DARBY [facility] [id number] [facility] 2020-12-23 15:31:41 2020-12-23 17:12:24 Office Visit Darby Moss [facility] 1.2.114 350.1.13.10 4.2.7.2.686 [id number] [facility] 2020-12-23 11:00:00 2020-12-23 13:53:00 Hospital Encounter Abhishek Leonard [facility] ([facility]) 1.20.114 350.1.13.10 4.2.7.2.686 [id number] [facility] 2020-12-17 11:58:01 2020-12-17 12:13:01 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 [facility] 1..114 350.1.13.10 4.2.7.2.686 [id number] [facility] 2020-12-17 11:30:00 2020-12-17 11:49:49 Outpatient R ABHISHEK [facility]ARD [facility] [id number] [facility] 2020-12-17 10:34:55 2020-12-17 11:04:55 Office Visit Horacio Abhishek [facility] [place] [facility] 1..114 350.1.13.10 4.2.7.2.686 [id number] [facility] 2020-11-27 00:00:00 2020-11-27 00:00:00 Orders Only Doctor Unassigned, [place] [facility] 1..114 350.1.13.10 4.2.7.2.686 [id number] [facility] 2020-11-18 11:00:00 2020-11-18 11:00:00 Outpatient R [facility] [id number] [facility] 2020-11-07 18:24:47 2020-11-07 18:39:47 Urgent Care Ramonita Shaw Unknown, Attending [facility] 1.840.114 350.1.13.10 4.2.7.2.686 [id number] [facility] 2020-11-07 18:15:00 2020-11-07 18:15:00 Outpatient R UNKNOWN, [facility]ING [facility] [id number] [facility] 2020-11-04 16:25:45 2020-11-04 16:50:39 Office Visit [facility] 1.840.114 350.1.13.10 4.2.7.2.686 [id number] [facility] 2020-11-04 16:30:00 2020-11-04 16:30:00 Outpatient R SPENSER KANG [facility] [id number] [facility] 2020-10-25 14:15:00 2020-10-25 14:15:00 Outpatient R YADIEL BANEGAS [facility] [id number] [facility] 2020-10-22 09:00:00 2020-10-22 09:00:00 Outpatient [facility] [id number] [facility] 2020-10-18 09:15:00 2020-10-18 09:15:00 Outpatient R SUNSHINE DICKSON [facility] [id number] [facility] 2020-10-14 09:12:10 2020-10-14 09:56:52 Office Visit Abhishek Leonard [facility] 1..840.114 350.1.13.10 4.2.7.2.686 [id number] [facility] 2020-10-14 09:15:00 2020-10-14 09:15:00 Outpatient R ABHISHEK [facility] [id number] [facility] 2020-09-25 08:00:00 2020-09-25 08:00:00 Outpatient R ABHISHEK [facility] [id number] [facility] 2020-09-25 00:00:00 2020-09-25 00:00:00 Telephone Abhishek Leonard [facility] [place] [facility] ..840.114 350.1.13.10 4.2.7.2.686 [id number] [facility] 2020-09-23 14:40:00 2020-09-23 14:40:00 Outpatient R BERNABE VIVAS [facility] [id number] [facility] 2020-09-19 10:30:00 2020-09-19 10:30:00 Outpatient R DELMA HARTMAN [facility] [id number] [facility] 2020-08-19 17:40:00 2020-08-19 17:40:00 Outpatient R [facility] [id number] [facility] 2020-08-16 11:00:00 2020-08-16 11:00:00 Outpatient RADHA LEIJA [facility] [id number] [facility] 2020-08-08 14:30:00 2020-08-08 14:30:00 Outpatient R DARBY MOSS [facility] [id number] [facility] 2020-07-31 08:00:00 2020-07-31 08:00:00 Outpatient RAMIRO GODINEZ [facility] [id number] [facility] 2020-07-29 08:40:00 2020-07-29 08:40:00 Outpatient RAMIRO GODINEZ [facility] [id number] [facility] 2020-07-29 00:00:00 2020-07-29 00:00:00 Patient Secure Msg Doctor Unassigned, [place] [facility] 1..840.114 350.1.13.10 4.2.7.2.686 [id number] [facility] 2020-07-26 16:15:00 2020-07-26 16:15:00 Outpatient DARBY OSWALD [facility] [id number] [facility] 2020-07-26 11:00:00 2020-07-26 11:00:00 [facility] [id number] 2020-07-19 14:20:00 2020-07-19 14:20:00 [facility] [id number] [facility] 2020-05-24 09:00:00 2020-05-24 09:00:00 Outpatient RAMIRO GODINEZ [facility] [id number] [facility] 2020-04-12 14:30:00 2020-04-12 14:30:00 Outpatient DARBY OSWALD [facility] [id number] [facility] 2020-03-04 15:00:00 2020-03-04 15:00:00 Outpatient RYAN MESA [facility] [id number] [facility] 2020-02-08 11:40:00 2020-02-08 11:40:00 Outpatient RAMIRO GODINEZ [facility] [id number] [facility] 2020-02-05 13:30:00 2020-02-05 13:30:00 Outpatient RYAN MESA [facility] [id number] [facility] 2020-01-29 15:00:00 2020-01-29 15:00:00 Outpatient GERARDO MARIE [facility] [id number] [facility] 2019-09-19 17:45:00 2019-09-19 17:45:00 Outpatient CATHERINE SPANN [facility] [id number] [facility] Results Test Description Test Time Test Comments Results Result Co [facility] [id number] 21:05:00 * Test Item Value Reference Range Interpretation Comme nts POCT U SP GRAV (test code = 3255) POCT PH U (test code = 3254) 6 mg/dl 5-8 POCT U LEUK EST (test code = 3263) trace Negative - Negative POCT U NIT (test code = 3262) negative Negative - Negati ve POCT U PROT (test code = 3259) negative Negative - Negat isabelle POCT U GLU (test code = 3256) negative Negative - Negati ve POCT U KETONE (test code = 3258) negative Negative - Neg ative POCT U UROBILI (test code = 3260) POCT U BILI (test code = 3261) POCT U BLD (test code = 3257) moderate Negative - Negati ve POCT U COLOR (test code = 3266) POCT U APPEAR (test code = 3267) [facility] [id number] 21:03:00* Test Item Value Reference Range Interpretation Comme nts POCT PREG (test code = 1605) Positive On board controls acceptable with C Line (test code = 3574) Yes POCT PREG LOT # (test code = 3575) POCT PREG TEST DATE ( test code = 3576) [facility] [id number] 21:03:00* Test Item Value Reference Range Interpretation Comme nts POCT PREG (test code = 1605) Positive On board controls acceptable with C Line (test code = 3574) Yes POCT PREG LOT # (test code = 3575) POCT PREG TEST DATE ( test code = 3576) [facility] MOLECULAR [id number] 17:14:24* Test Item Value Reference Range Interpretation Comme nts POCT Molecular Strep (test c ode = 06060-7) Negative Negative Lab Interpretation (test cod e = 82204-5) Normal [facility] MOLECULAR [id number] 17:14:24* Test Item Value Reference Range Interpretation Comme nts POCT Molecular Strep (test c ode = 59661-4) Negative Negative Lab Interpretation (test cod e = 96200-7) Normal [facility] MOLECULAR [id number] 17:14:24* Test Item Value Reference Range Interpretation Comme nts POCT Molecular Strep (test c ode = 68725-7) Negative Negative Lab Interpretation (test cod e = 94154-6) Normal [facility] MOLECULAR [id number] 17:14:24* Test Item Value Reference Range Interpretation Comme nts POCT Molecular Strep (test c ode = 10109-6) Negative Negative Lab Interpretation (test cod e = 31056-3) Normal [facility] [id number] 17:10:00* Test Item Value Reference Range Interpretation Comme nts POCT PREG (test code = 1605) Negative On board controls acceptable with C Line (test code = 3574) Yes POCT PREG LOT # (test code = 3575) POCT PREG TEST DATE ( test code = 3576) [facility] [id number] 17:10:00* Test Item Value Reference Range Interpretation Comme nts POCT PREG (test code = 1605) Negative On board controls acceptable with C Line (test code = 3574) Yes POCT PREG LOT # (test code = 3575) POCT PREG TEST DATE ( test code = 3576) [facility] [id number] 17:10:00* Test Item Value Reference Range Interpretation Comme nts POCT PREG (test code = 1605) Negative On board controls acceptable with C Line (test code = 3574) Yes POCT PREG LOT # (test code = 3575) POCT PREG TEST DATE ( test code = 3576) [facility] [id number] 17:10:00* Test Item Value Reference Range Interpretation Comme nts POCT PREG (test code = 1605) Negative On board controls acceptable with C Line (test code = 3574) Yes POCT PREG LOT # (test code = 3575) POCT PREG TEST DATE ( test code = 3576) [facility] SARS-COV-2 ANTIGEN (BINAX NOW)2023-03-30 17:09:00* Test Item Value Reference Range Interpretation Comme nts POCT SARS-COV-2 ANTIGEN (neel t code = 28401-0) Positive Not Detected A On board controls acceptable with C Line (test code = 3574) No Lab Interpretation (test cod e = 62059-7) Abnormal [facility] SARS-COV-2 ANTIGEN (BINAX NOW)2023-03-30 17:09:00* Test Item Value Reference Range Interpretation Comme nts POCT SARS-COV-2 ANTIGEN (neel t code = 04429-8) Positive Not Detected A On board controls acceptable with C Line (test code = 3574) No Lab Interpretation (test cod e = 71151-6) Abnormal [facility] SARS-COV-2 ANTIGEN (BINAX NOW)2023-03-30 17:09:00* Test Item Value Reference Range Interpretation Comme nts POCT SARS-COV-2 ANTIGEN (neel t code = 04924-1) Positive Not Detected A On board controls acceptable with C Line (test code = 3574) Yes Lab Interpretation (test cod e = 33345-6) Abnormal [facility] SARS-COV-2 ANTIGEN (BINAX NOW)2023-03-30 17:09:00* Test Item Value Reference Range Interpretation Comme nts POCT SARS-COV-2 ANTIGEN (neel t code = 81110-7) Positive Not Detected A On board controls acceptable with C Line (test code = 3574) Yes Lab Interpretation (test cod e = 61308-0) Abnormal [facility] Molecular [id number] 16:59:58* Test Item Value Reference Range Interpretation Comme nts POCT Molecular FluA (test co de = 66153-6) Negative Negative POCT Molecular FluB (test co de = 12772-4) Negative Negative Lab Interpretation (test cod e = 88157-0) Normal [facility] Molecular [id number] 16:59:58* Test Item Value Reference Range Interpretation Comme nts POCT Molecular FluA (test co de = 18203-9) Negative Negative POCT Molecular FluB (test co de = 04211-5) Negative Negative Lab Interpretation (test cod e = 91153-6) Normal [facility] Molecular [id number] 16:59:58* Test Item Value Reference Range Interpretation Comme nts POCT Molecular FluA (test co de = 22320-2) Negative Negative POCT Molecular FluB (test co de = 37278-2) Negative Negative Lab Interpretation (test cod e = 91896-9) Normal [facility] Molecular [id number] 16:59:58* Test Item Value Reference Range Interpretation Comme nts POCT Molecular FluA (test co de = 88171-5) Negative Negative POCT Molecular FluB (test co de = 72970-1) Negative Negative Lab Interpretation (test cod e = 57419-3) Normal [facility] Molecular [id number] 16:58:49* Test Item Value Reference Range Interpretation Comme nts POCT Molecular FluA (test co de = 60478-1) Negative Negative POCT Molecular FluB (test co de = 26454-2) Negative Negative Lab Interpretation (test cod e = 59153-9) Normal [facility] SARS-COV-2 ANTIGEN (BINAX NOW)2023-03-02 16:55:00* Test Item Value Reference Range Interpretation Comme nts POCT SARS-COV-2 ANTIGEN (neel t code = 28227-1) Not Detected Not Detected On board controls acceptable with C Line (test code = 3574) Yes Lab Interpretation (test cod e = 37805-2) Normal [facility] MOLECULAR [id number] 16:51:36* Test Item Value Reference Range Interpretation Comme nts POCT Molecular Strep (test c ode = 48334-6) Negative Negative Lab Interpretation (test cod e = 17177-0) [facility] [id number] 14:40:30XR ABDOMEN 1 VW CLINICAL INDICATION: 43 years old Female with abd pain . COMPARISON: Review of CT abdomen pelvis with contrast 01/06/2022 FINDINGS:Bowel gas pattern is normal. ?No pneumatosis, portal venous gas or freeintraperitoneal air on this single supine view. ?No abdominal calcification or mass effect. Visualized lung bases are clear and well aerated. ?Visualized osseousstructures are normal. ? [facility] MOLECULAR [id number] 02:02:01* Test Item Value Reference Range Interpretation Comme nts POCT Molecular FluA (test co de = 83375-6) Negative Negative POCT Molecular FluB (test co de = 00041-0) Negative Negative Lab Interpretation (test cod e = 92402-1) Normal [facility] MOLECULAR [id number] 01:47:20* Test Item Value Reference Range Interpretation Comme nts POCT Molecular Strep (test c ode = 23247-7) Negative Negative Lab Interpretation (test cod e = 22913-3) Normal [facility] [id number] 12:42:00* Test Item Value Reference Range Interpretation Comme nts POCT PREG (test code = 1605) Negative On board controls acceptable with C Line (test code = 3574) Yes POCT PREG LOT # (test code = 3575) 586507 POCT PREG TEST DATE ( test code = 3576) 03/10/2024 Lab Interpretation (test cod e = 36729-6) [id number] 16:46:06* Test Item Value Reference Range Interpretation Comme nts Syphilis IgG/IgM (test code = 06018-2) Non-reactive Non-reactive JEANCARLOS (test code = JEANCARLOS) Non-reactive - No serologic evidence of T. pallidum infection. Cannot exclude incubating or early syphilis. Submit a second specimen in 2-4 weeks if syphilis is clinically suspected. Equivocal - Further testing to follow. Reactive - Further testing to follow. Lab Interpretation (test code = 39373-0) Normal [id number] 16:46:06* Test Item Value Reference Range Interpretation Comme nts Syphilis IgG/IgM (test code = 57196-7) Non-reactive Non-reactive JEANCARLOS (test code = JEANCARLOS) Non-reactive - No serologic evidence of T. pallidum infection. Cannot exclude incubating or early syphilis. Submit a second specimen in 2-4 weeks if syphilis is clinically suspected. Equivocal - Further testing to follow. Reactive - Further testing to follow. Lab Interpretation (test code = 93984-3) Normal [id number] 16:46:06* Test Item Value Reference Range Interpretation Comme nts Syphilis IgG/IgM (test code = 85015-8) Non-reactive Non-reactive JEANCARLOS (test code = JEANCARLOS) Non-reactive - No serologic evidence of T. pallidum infection. Cannot exclude incubating or early syphilis. Submit a second specimen in 2-4 weeks if syphilis is clinically suspected. Equivocal - Further testing to follow. Reactive - Further testing to follow. Lab Interpretation (test code = 65947-7) Normal [id number] 16:46:06* Test Item Value Reference Range Interpretation Comme nts Syphilis IgG/IgM (test code = 23753-6) Non-reactive Non-reactive JEANCARLOS (test code = JEANCARLOS) Non-reactive - No serologic evidence of T. pallidum infection. Cannot exclude incubating or early syphilis. Submit a second specimen in 2-4 weeks if syphilis is clinically suspected. Equivocal - Further testing to follow. Reactive - Further testing to follow. Lab Interpretation (test code = 74743-6) Normal [facility]/[id number] 16:46:06* Test Item Value Reference Range Interpretation Comme nts Syphilis IgG/IgM (test code = 31001-7) Non-reactive Non-reactive JEANCARLOS (test code = JEANCARLOS) Non-reactive - No serologic evidence of T. pallidum infection. Cannot exclude incubating or early syphilis. Submit a second specimen in 2-4 weeks if syphilis is clinically suspected. Equivocal - Further testing to follow. Reactive - Further testing to follow. Lab Interpretation (test code = 50611-9) Normal [id number] 16:46:06* Test Item Value Reference Range Interpretation Comme nts Syphilis IgG/IgM (test code = 17771-9) Non-reactive Non-reactive JEANCARLOS (test code = JEANCARLOS) Non-reactive - No serologic evidence of T. pallidum infection. Cannot exclude incubating or early syphilis. Submit a second specimen in 2-4 weeks if syphilis is clinically suspected. Equivocal - Further testing to follow. Reactive - Further testing to follow. Lab Interpretation (test code = 44753-2) [facility] [id number] 03:23:02* Test Item Value Reference Range Interpretation Comme [facility] HIV Semi-quantitative (test code = 33102-3) 0.06 Negative JEANCARLOS (test code = JEANCARLOS) Non-reactive for HIV-1 antigen and HIV-1/HIV-2 antibodies. ?No laboratory evidence of HIV infection. ?Repeat in 2-4 weeks if acute HIV infection is suspected. [facility] 1/2 AG-AB WITH [id number] 03:23:02* Test Item Value Reference Range Interpretation Comme nts HIV Semi-quantitative (test code = 21799-7) 0.06 Negative JEANCARLOS (test code = JEANCARLOS) Non-reactive for HIV-1 antigen and HIV-1/HIV-2 antibodies. ?No laboratory evidence of HIV infection. ?Repeat in 2-4 weeks if acute HIV infection is suspected. [facility] 1/2 AG-AB WITH [id number] 03:23:02* Test Item Value Reference Range Interpretation Comme nts HIV Semi-quantitative (test code = 41865-8) 0.06 Negative JEANCARLOS (test code = JEANCARLOS) Non-reactive for HIV-1 antigen and HIV-1/HIV-2 antibodies. ?No laboratory evidence of HIV infection. ?Repeat in 2-4 weeks if acute HIV infection is suspected. [facility] 1/2 AG-AB WITH [id number] 03:23:02* Test Item Value Reference Range Interpretation Comme nts HIV Semi-quantitative (test code = 64046-6) 0.06 Negative JEANCARLOS (test code = JEANCARLOS) Non-reactive for HIV-1 antigen and HIV-1/HIV-2 antibodies. ?No laboratory evidence of HIV infection. ?Repeat in 2-4 weeks if acute HIV infection is suspected. [facility] 1/2 AG-AB WITH [id number] 03:23:02* Test Item Value Reference Range Interpretation Comme nts HIV Semi-quantitative (test code = 33242-7) 0.06 Negative JEANCARLOS (test code = JEANCARLOS) Non-reactive for HIV-1 antigen and HIV-1/HIV-2 antibodies. ?No laboratory evidence of HIV infection. ?Repeat in 2-4 weeks if acute HIV infection is suspected. [facility] 1/2 AG-AB WITH [id number] 03:23:02* Test Item Value Reference Range Interpretation Comme nts HIV Semi-quantitative (test code = 24389-0) 0.06 Negative JEANCARLOS (test code = JEANCARLOS) Non-reactive for HIV-1 antigen and HIV-1/HIV-2 antibodies. ?No laboratory evidence of HIV infection. ?Repeat in 2-4 weeks if acute HIV infection is suspected. [facility] [id number] 02:28:14* Test Item Value Reference Range Interpretation Comme nts HCV Ab (test code = 39304-2) Negative HCV Semi-Quantitative (test code = 20074-1) 0.01 [facility] [id number] 02:28:14* Test Item Value Reference Range Interpretation Comme nts HCV Ab (test code = 35233-6) Negative HCV Semi-Quantitative (test code = 27605-6) 0.01 [facility] [id number] 02:28:14* Test Item Value Reference Range Interpretation Comme nts HCV Ab (test code = 70098-1) Negative HCV Semi-Quantitative (test code = 19618-4) 0.01 [facility] [id number] 02:28:14* Test Item Value Reference Range Interpretation Comme nts HCV Ab (test code = 29564-9) Negative HCV Semi-Quantitative (test code = 84062-9) 0.01 [facility] [id number] 02:28:14* Test Item Value Reference Range Interpretation Comme nts HCV Ab (test code = 83636-3) Negative HCV Semi-Quantitative (test code = 39145-7) 0.01 [facility] [id number] 02:28:14* Test Item Value Reference Range Interpretation Comme nts HCV Ab (test code = 73267-3) Negative HCV Semi-Quantitative (test code = 59582-6) 0.01 [facility] B SURFACE [id number] 02:10:32 * Test Item Value Reference Range Interpretation Comme nts HBsAg Semi-Quantitative (neel t code = 5195-3) 0.05 Negative [facility] B SURFACE [id number] 02:10:32 * Test Item Value Reference Range Interpretation Comme nts HBsAg Semi-Quantitative (neel t code = 5195-3) 0.05 Negative [facility] B SURFACE [id number] 02:10:32 * Test Item Value Reference Range Interpretation Comme nts HBsAg Semi-Quantitative (neel t code = 5195-3) 0.05 Negative [facility] B SURFACE [id number] 02:10:32 * Test Item Value Reference Range Interpretation Comme nts HBsAg Semi-Quantitative (neel t code = 5195-3) 0.05 Negative [facility] [id number] 02:10:32 * Test Item Value Reference Range Interpretation Comme nts HBsAg Semi-Quantitative (neel t code = 5195-3) 0.05 Negative [facility] [id number] 02:10:32 * Test Item Value Reference Range Interpretation Comme nts HBsAg Semi-Quantitative (neel t code = 5195-3) 0.05 Negative [facility], QUANTITATIVE, [id number] 02:09:32BETA HCG<2.39Non- female and male patients: <5 mIU/mL08/20/2022 9:09 PM [facility] Gestational Age ?Range (mIU/mL) 1-10 ?Weeks ?[id number] Weeks ?93915-60059015-05 Weeks ?3832-28043086-91 Weeks ?1531-021319 Biotin has been reported to cause a negative bias, interpret results relative to patient's use of biotin.[facility] HCG, QUANTITATIVE, [id number] 02:09:32BETA HCG<2.39Non- female and male patients: <5 mIU/mL08/20/2022 9:09 PM [facility] Gestational Age ?Range (mIU/mL) 1-10 ?Weeks ?[phone] Weeks ?01410-05670143-07 Weeks ?0012-99615899-47 Weeks ?1531-690971 Biotin has been reported to cause a negative bias, interpret results relative to patient's use of biotin. [facility], [id number] 02:09:32BETA HCG<2.39Non- female and male patients: <5 mIU/mL08/20/2022 9:09 PM [facility] Gestational Age ?Range (mIU/mL) 1-10 ?Weeks ?72-90788996-25 Weeks ?42308-84344200-28 Weeks ?6402-69873679-94 Weeks ?1531-463533 Biotin has been reported to cause a negative bias, interpret results relative to patient's use of biotin.[facility] HCG, QUANTITATIVE, [id number] 02:09:32BETA HCG<2.39Non- female and male patients: <5 mIU/mL08/20/2022 9:09 PM [facility] Gestational Age ?Range (mIU/mL) 1-10 ?Weeks ?92-85040339-08 Weeks ?96174-52811002-18 Weeks ?5433-98554645-48 Weeks ?1531-490431 Biotin has been reported to cause a negative bias, interpret results relative to patient's use of biotin. [facility], [id number] 02:09:32BETA HCG<2.39Non- female and male patients: <5 mIU/mL08/20/2022 9:09 PM [facility] Gestational Age ?Range (mIU/mL) 1-10 ?Weeks ?12-19348193-91 Weeks ?07041-83137757-42 Weeks ?7959-19489337-71 Weeks ?1531-764479 Biotin has been reported to cause a negative bias, interpret results relative to patient's use of biotin.[facility] HCG, QUANTITATIVE, [id number] 02:09:32BETA HCG<2.39Non- female and male patients: <5 mIU/mL08/20/2022 9:09 PM [facility] Gestational Age ?Range (mIU/mL) 1-10 ?Weeks ?54-19092404-80 Weeks ?52234-28645248-83 Weeks ?7270-00977753-38 Weeks ?0602-806510 Biotin has been reported to cause a negative bias, interpret results relative to patient's use of biotin. [facility] [id number] 14:09:00* Test Item Value Reference Range Interpretation Comme nts POCT PREG (test code = 1605) Negative On board controls acceptable with C Line (test code = 3574) Yes POCT PREG LOT # (test code = 3575) POCT PREG TEST DATE ( test code = 3576) [facility] URINALYSIS, [id number] 14:09:00 * Test Item Value Reference Range Interpretation Comme nts POCT U SP GRAV (test code = 3255) POCT PH U (test code = 3254) 7.0 mg/dl 5-8 POCT U LEUK EST (test code = 3263) neg Negative - Negative POCT U NIT (test code = 3262) neg Negative - Negati ve POCT U PROT (test code = 3259) neg Negative - Negat isabelle POCT U GLU (test code = 3256) neg Negative - Negati ve POCT U KETONE (test code = 3258) neg Negative - Negative POCT U UROBILI (test code = 3260) POCT U BILI (test code = 3261) POCT U BLD (test code = 3257) neg Negative - Negati ve POCT U COLOR (test code = 3266) POCT U APPEAR (test code = 3267) [facility] [id number] 14:09:00* Test Item Value Reference Range Interpretation Comme nts POCT PREG (test code = 1605) Negative On board controls acceptable with C Line (test code = 3574) Yes POCT PREG LOT # (test code = 3575) POCT PREG TEST DATE ( test code = 3576) [facility] URINALYSIS, [id number] 14:09:00 * Test Item Value Reference Range Interpretation Comme nts POCT U SP GRAV (test code = 3255) POCT PH U (test code = 3254) 7.0 mg/dl 5-8 POCT U LEUK EST (test code = 3263) neg Negative - Negative POCT U NIT (test code = 3262) neg Negative - Negati ve POCT U PROT (test code = 3259) neg Negative - Negat isabelle POCT U GLU (test code = 3256) neg Negative - Negati ve POCT U KETONE (test code = 3258) neg Negative - Negative POCT U UROBILI (test code = 3260) POCT U BILI (test code = 3261) POCT U BLD (test code = 3257) neg Negative - Negati ve POCT U COLOR (test code = 3266) POCT U APPEAR (test code = 3267) [id number]* Test Item Value Reference Range Interpretation Comme nts POCT PREG (test code = 1605) Negative On board controls acceptable with C Line (test code = 3574) Yes POCT PREG LOT # (test code = 3575) POCT PREG TEST DATE ( test code = 3576) [facility] URINALYSIS, [id number] 14:09:00 * Test Item Value Reference Range Interpretation Comme nts POCT U SP GRAV (test code = 3255) POCT PH U (test code = 3254) 7.0 mg/dl 5-8 POCT U LEUK EST (test code = 3263) neg Negative - Negative POCT U NIT (test code = 3262) neg Negative - Negati ve POCT U PROT (test code = 3259) neg Negative - Negat isabelle POCT U GLU (test code = 3256) neg Negative - Negati ve POCT U KETONE (test code = 3258) neg Negative - Negative POCT U UROBILI (test code = 3260) POCT U BILI (test code = 3261) POCT U BLD (test code = 3257) neg Negative - Negati ve POCT U COLOR (test code = 3266) POCT U APPEAR (test code = 3267) [facility] [id number] 14:09:00* Test Item Value Reference Range Interpretation Comme nts POCT PREG (test code = 1605) Negative On board controls acceptable with C Line (test code = 3574) Yes POCT PREG LOT # (test code = 3575) POCT PREG TEST DATE ( test code = 3576) [facility] URINALYSIS, [id number] 14:09:00 * Test Item Value Reference Range Interpretation Comme nts POCT U SP GRAV (test code = 3255) POCT PH U (test code = 3254) 7.0 mg/dl 5-8 POCT U LEUK EST (test code = 3263) neg Negative - Negative POCT U NIT (test code = 3262) neg Negative - Negati ve POCT U PROT (test code = 3259) neg Negative - Negat isabelle POCT U GLU (test code = 3256) neg Negative - Negati ve POCT U KETONE (test code = 3258) neg Negative - Negative POCT U UROBILI (test code = 3260) POCT U BILI (test code = 3261) POCT U BLD (test code = 3257) neg Negative - Negati ve POCT U COLOR (test code = 3266) POCT U APPEAR (test code = 3267) [facility] [id number] 14:09:00* Test Item Value Reference Range Interpretation Comme nts POCT PREG (test code = 1605) Negative On board controls acceptable with C Line (test code = 3574) Yes POCT PREG LOT # (test code = 3575) POCT PREG TEST DATE ( test code = 3576) [facility] URINALYSIS, [id number] 14:09:00 * Test Item Value Reference Range Interpretation Comme nts POCT U SP GRAV (test code = 3255) POCT PH U (test code = 3254) 7.0 mg/dl 5-8 POCT U LEUK EST (test code = 3263) neg Negative - Negative POCT U NIT (test code = 3262) neg Negative - Negati ve POCT U PROT (test code = 3259) neg Negative - Negat isabelle POCT U GLU (test code = 3256) neg Negative - Negati ve POCT U KETONE (test code = 3258) neg Negative - Negative POCT U UROBILI (test code = 3260) POCT U BILI (test code = 3261) POCT U BLD (test code = 3257) neg Negative - Negati ve POCT U COLOR (test code = 3266) POCT U APPEAR (test code = 3267) [facility] [id number] 14:09:00* Test Item Value Reference Range Interpretation Comme nts POCT PREG (test code = 1605) Negative On board controls acceptable with C Line (test code = 3574) Yes POCT PREG LOT # (test code = 3575) POCT PREG TEST DATE ( test code = 3576) [facility] URINALYSIS, [id number] 14:09:00 * Test Item Value Reference Range Interpretation Comme nts POCT U SP GRAV (test code = 3255) POCT PH U (test code = 3254) 7.0 mg/dl 5-8 POCT U LEUK EST (test code = 3263) neg Negative - Negative POCT U NIT (test code = 3262) neg Negative - Negati ve POCT U PROT (test code = 3259) neg Negative - Negat isabelle POCT U GLU (test code = 3256) neg Negative - Negati ve POCT U KETONE (test code = 3258) neg Negative - Negative POCT U UROBILI (test code = 3260) POCT U BILI (test code = 3261) POCT U BLD (test code = 3257) neg Negative - Negati ve POCT U COLOR (test code = 3266) POCT U APPEAR (test code = 3267) [facility] MOLECULAR [id number] 14:14:12* Test Item Value Reference Range Interpretation Comme nts POCT Molecular FluA (test co de = 16613-9) Negative Negative POCT Molecular FluB (test co de = 59838-3) Negative Negative Lab Interpretation (test cod e = 53452-7) Normal [facility] MOLECULAR [id number] 14:14:12* Test Item Value Reference Range Interpretation Comme nts POCT Molecular FluA (test co de = 37671-1) Negative Negative POCT Molecular FluB (test co de = 65027-2) Negative Negative Lab Interpretation (test cod e = 69697-7) Normal [facility] MOLECULAR [id number] 14:14:12* Test Item Value Reference Range Interpretation Comme nts POCT Molecular FluA (test co de = 50241-5) Negative Negative POCT Molecular FluB (test co de = 77038-4) Negative Negative Lab Interpretation (test cod e = 71078-9) Normal [facility] MOLECULAR [id number] 14:14:12* Test Item Value Reference Range Interpretation Comme nts POCT Molecular FluA (test co de = 68986-3) Negative Negative POCT Molecular FluB (test co de = 87982-5) Negative Negative Lab Interpretation (test cod e = 95466-2) [facility] [id number] 04:09:10* Test Item Value Reference Range Interpretation Comme nts VIT B12 (test code = 4706643154) 551 pg/mL 240-930 JEANCARLOS (test code = JEANCARLOS) Biotin has been reported to cause a positive bias, interpret results relative to patient's use of biotin. Lab Interpretation (test code = 15776-4) [facility] [id number] 04:09:10* Test Item Value Reference Range Interpretation Comme nts VIT B12 (test code = 7949500861) 551 pg/mL 240-930 JEANCARLOS (test code = JEANCARLOS) Biotin has been reported to cause a positive bias, interpret results relative to patient's use of biotin. Lab Interpretation (test code = 57320-7) [facility]:28:34* Test Item Value Reference Range Interpretation Comme nts FOLATE SER (test code = 3900545285) 15.7 ng/mL 3.0-20.0 Lab Interpretation (test cod e = 40160-8) [facility]:28:[facility]* Test Item Value Reference Range Interpretation Comme nts FOLATE SER (test code = 1781023775) 15.7 ng/mL 3.0-20.0 Lab Interpretation (test cod e = 38359-9) [facility] [id number] 00:56:53* Test Item Value Reference Range Interpretation Comme nts FERRITIN (test code = 2458982096) 31.9 ng/mL 6.0-137.0 JEANCARLOS (test code = JEANCARLOS) Biotin has been reported to cause a negative bias, interpret results relative to patient's use of biotin. Lab Interpretation (test code = 34612-7) [facility] [id number] 00:56:53* Test Item Value Reference Range Interpretation Comme nts FERRITIN (test code = 5698680330) 31.9 ng/mL 6.0-137.0 JEANCARLOS (test code = JEANCARLOS) Biotin has been reported to cause a negative bias, interpret results relative to patient's use of biotin. Lab Interpretation (test code = 63576-0) Normal [facility] [id number] 00:29:31* Test Item Value Reference Range Interpretation Comme nts IRON (test code = 4451009825) 57 ug/dL 50-160 TIBC (test code = 6863517073) 303 ug/dL 250-410 % FE SAT (test code = 3211803674) 19 % 20-50 L Lab Interpretation (test cod e = 25652-6) Abnormal [facility] IRON BINDING [id number] 00:29:31 * Test Item Value Reference Range Interpretation Comme nts TIBC (test code = 6604462945) 303 ug/dL 250-410 Lab Interpretation (test cod e = 42973-9) Normal [facility] [id number] 00:29:31* Test Item Value Reference Range Interpretation Comme nts IRON (test code = 9433643390) 57 ug/dL 50-160 TIBC (test code = 0689236074) 303 ug/dL 250-410 % FE SAT (test code = 7848116867) 19 % 20-50 L Lab Interpretation (test cod e = 77054-9) Abnormal [facility] IRON BINDING [id number] 00:29:31 * Test Item Value Reference Range Interpretation Comme nts TIBC (test code = 0802357134) 303 ug/dL 250-410 Lab Interpretation (test cod e = 44901-1) [facility] [id number] 04:13:03 * Test Item Value Reference Range Interpretation Comme nts TSH (test code = 9537574046) See_Comment Biotin has been reported to cause a negative bias, interpret results relative to patient's use of biotin. [Automated message] The system which generated this result transmitted reference range: 0.45 - 4.70 mIU/L. The reference range was not used to interpret this result as normal/abnormal. Lab Interpretation (test code = 19360-9) [facility] [id number] 04:13:03 * Test Item Value Reference Range Interpretation Comme nts TSH (test code = 8009148242) See_Comment Biotin has been reported to cause a negative bias, interpret results relative to patient's use of biotin. [Automated message] The system which generated this result transmitted reference range: 0.45 - 4.70 mIU/L. The reference range was not used to interpret this result as normal/abnormal. Lab Interpretation (test code = 85399-8) [facility] WITH [id number] 02:58:36* Test Item Value Reference Range Interpretation Comme nts WBC (test code = 6690-2) See_Comment [Automated Undertonea ge] The system which generated this result transmitted reference range: 4.30 - 11.10 10*3/?L. The reference range was not used to interpret this result as normal/abnormal. RBC (test code = 789-8) See_Comment [Automated Undertonea ge] The system which generated this result transmitted reference range: 3.93 - 5.25 10*6/?L. The reference range was not used to interpret this result as normal/abnormal. HGB (test code = 718-7) 12.4 g/dL 11.6-15.0 HCT (test code = 4544-3) 38.5 % 35.7-45.2 MCV (test code = 787-2) 97.7 fL 80.6-95.5 H MCH (test code = 785-6) 31.5 pg 25.9-32.8 MCHC (test code = 786-4) 32.2 g/dL 31.6-35.1 RDW-SD (test code = 09361-7) 44.2 fL 39.0-49.9 RDW-CV (test code = 788-0) 12.3 % 12.0-15.5 PLT (test code = 777-3) See_Comment [Automated Undertonea ge] The system which generated this result transmitted reference range: 166 - 358 10*3/?L. The reference range was not used to interpret this result as normal/abnormal. MPV (test code = 86373-4) 11.2 fL 9.5-12.9 NRBC/100 WBC (test code = 7173558978) See_Comment [Automated [employer] ssage] The system which generated this result transmitted reference range: 0.0 - 10.0 /100 WBCs. The reference range was not used to interpret this result as normal/abnormal. NRBC x10^3 (test code = 9256368713) See_Comment [Automated Undertonea ge] The system which generated this result transmitted reference range: 10*3/?L. The reference range was not used to interpret this result as normal/abnormal. GRAN MAT (NEUT) % (test code = 770-8) 58.6 % IMM GRAN % (test code = 7286782556) 0.20 % LYMPH % (test code = 736-9) 33.7 % MONO % (test code = 5905-5) 6.5 % EOS % (test code = 713-8) 0.6 % BASO % (test code = 706-2) 0.4 % GRAN MAT x10^3(ANC) (test code = 7895624941) 2.89 10*3/uL 1.88-7.09 IMM GRAN x10^3 (test code = 7331623209) 0.00-0.06 LYMPH x10^3 (test code = 731-0) 1.66 10*3/uL 1.32-3.29 MONO x10^3 (test code = 742-7) 0.32 10*3/uL 0.33-0.92 L EOS x10^3 (test code = 711-2) 0.03 10*3/uL 0.03-0.39 BASO x10^3 (test code = 704-7) 0.01-0.07 Lab Interpretation (test code = 70396-3) Abnormal [facility] WITH [id number] 02:58:36* Test Item Value Reference Range Interpretation Comme nts WBC (test code = 6690-2) See_Comment [Automated messa ge] The system which generated this result transmitted reference range: 4.30 - 11.10 10*3/?L. The reference range was not used to interpret this result as normal/abnormal. RBC (test code = 789-8) See_Comment [Automated messa ge] The system which generated this result transmitted reference range: 3.93 - 5.25 10*6/?L. The reference range was not used to interpret this result as normal/abnormal. HGB (test code = 718-7) 12.4 g/dL 11.6-15.0 HCT (test code = 4544-3) 38.5 % 35.7-45.2 MCV (test code = 787-2) 97.7 fL 80.6-95.5 H MCH (test code = 785-6) 31.5 pg 25.9-32.8 MCHC (test code = 786-4) 32.2 g/dL 31.6-35.1 RDW-SD (test code = 54824-6) 44.2 fL 39.0-49.9 RDW-CV (test code = 788-0) 12.3 % 12.0-15.5 PLT (test code = 777-3) See_Comment [Automated messa ge] The system which generated this result transmitted reference range: 166 - 358 10*3/?L. The reference range was not used to interpret this result as normal/abnormal. MPV (test code = 10128-0) 11.2 fL 9.5-12.9 NRBC/100 WBC (test code = 7483228123) See_Comment [Automated me ssage] The system which generated this result transmitted reference range: 0.0 - 10.0 /100 WBCs. The reference range was not used to interpret this result as normal/abnormal. NRBC x10^3 (test code = 6454412496) See_Comment [Automated messa ge] The system which generated this result transmitted reference range: 10*3/?L. The reference range was not used to interpret this result as normal/abnormal. GRAN MAT (NEUT) % (test code = 770-8) 58.6 % IMM GRAN % (test code = 5490884684) 0.20 % LYMPH % (test code = 736-9) 33.7 % MONO % (test code = 5905-5) 6.5 % EOS % (test code = 713-8) 0.6 % BASO % (test code = 706-2) 0.4 % GRAN MAT x10^3(ANC) (test code = 1100960761) 2.89 10*3/uL 1.88-7.09 IMM GRAN x10^3 (test code = 8902916986) 0.00-0.06 LYMPH x10^3 (test code = 731-0) 1.66 10*3/uL 1.32-3.29 MONO x10^3 (test code = 742-7) 0.32 10*3/uL 0.33-0.92 L EOS x10^3 (test code = 711-2) 0.03 10*3/uL 0.03-0.39 BASO x10^3 (test code = 704-7) 0.01-0.07 Lab Interpretation (test code = 66872-1) Abnormal [facility] [id number] 18:20:00* Test Item Value Reference Range Interpretation Comme nts POCT PREG (test code = 1605) Negative On board controls acceptable with C Line (test code = 3574) Yes POCT PREG LOT # (test code = 3575) POCT PREG TEST DATE ( test code = 3576) [facility] [id number] 18:20:00* Test Item Value Reference Range Interpretation Comme nts POCT PREG (test code = 1605) Negative On board controls acceptable with C Line (test code = 3574) Yes POCT PREG LOT # (test code = 3575) POCT PREG TEST DATE ( test code = 3576) [facility] METABOLIC PANEL (NA, K, CL, CO2, GLUCOSE, BUN, CREATININE, CA)2022-01-07 01:12:59* Test Item Value Reference Range Interpretation Comme nts NA (test code = 0575998966) 139 mmol/L 135-145 K (test code = 6080178775) 3.8 mmol/L 3.5-5.0 CL (test code = 5502533716) 107 mmol/L 98-108 CO2 TOTAL (test code = 8634730651) 25 mmol/L 23-31 AGAP (test code = 1503110833) 2-16 BUN (test code = 7871277933) 14 mg/dL 7-23 GLUCOSE (test code = 9326922347) 84 mg/dL 70-110 CREATININE (test code = 7288021513) 0.76 mg/dL 0.50-1.04 CALCIUM (test code = 8640402831) 8.8 mg/dL 8.6-10.6 eGFR (test code = 0914099634) mL/min/1.73m2 JEANCARLOS (test code = JEANCARLOS) Association of Glomerular Filtration Rate (GFR) and Staging of Kidney Disease* + + +- +| GFR (mL/min/1.73 m2) ?| With Kidney Damage ?| ?Without Kidney Damage+ ------+ ----+ ------+| ?>90 ?| ?Stage one ?| ? Normal ?+ -+ + -+| ?60-89 ?| ?Stage two ?| ? Decreased GFR ? + + +- +| ?30-59 ?| ?Stage three ?| ? Stage three ? + + +- +| ?15-29 ?| ?Stage four ? | ? Stage four ?+ -+ + -+| ?<15 (or dialysis) ? ?| ?Stage five ? | ? Stage five ?+ -+ + -+ *Each stage assumes the associated GFR level has been in effect for at least three months. ?Stages 1 to 5, with or without kidney disease, indicate chronic kidney disease. Notes: Determination of stages one and two (with eGFR >59mL/min/1.73 m2) requires estimation of kidney damage for at least three months as defined by structural or functional abnormalities of the kidney, manifested by either:Pathological abnormalities or Markers of kidney damage (including abnormalities in the composition of the blood or urine or abnormalities in imaging tests). [facility] WITH [id number] 00:54:55* Test Item Value Reference Range Interpretation Comme nts WBC (test code = 6690-2) See_Comment [Automated Undertonea ge] The system which generated this result transmitted reference range: 4.30 - 11.10 10*3/?L. The reference range was not used to interpret this result as normal/abnormal. RBC (test code = 789-8) See_Comment [Automated Undertonea ge] The system which generated this result transmitted reference range: 3.93 - 5.25 10*6/?L. The reference range was not used to interpret this result as normal/abnormal. HGB (test code = 718-7) 12.8 g/dL 11.6-15.0 HCT (test code = 4544-3) 37.5 % 35.7-45.2 MCV (test code = 787-2) 95.4 fL 80.6-95.5 MCH (test code = 785-6) 32.6 pg 25.9-32.8 MCHC (test code = 786-4) 34.1 g/dL 31.6-35.1 RDW-SD (test code = 71637-1) 43.8 fL 39.0-49.9 RDW-CV (test code = 788-0) 12.4 % 12.0-15.5 PLT (test code = 777-3) See_Comment [Automated Undertonea ge] The system which generated this result transmitted reference range: 166 - 358 10*3/?L. The reference range was not used to interpret this result as normal/abnormal. MPV (test code = 46105-6) 10.4 fL 9.5-12.9 NRBC/100 WBC (test code = 9990014779) See_Comment [Automated me ssage] The system which generated this result transmitted reference range: 0.0 - 10.0 /100 WBCs. The reference range was not used to interpret this result as normal/abnormal. NRBC x10^3 (test code = 1172325573) See_Comment [Automated me ssage] The system which generated this result transmitted reference range: 10*3/?L. The reference range was not used to interpret this result as normal/abnormal. GRAN MAT (NEUT) % (test code = 770-8) 57.5 % IMM GRAN % (test code = 4073003076) 0.30 % LYMPH % (test code = 736-9) 34.8 % MONO % (test code = 5905-5) 6.5 % EOS % (test code = 713-8) 0.5 % BASO % (test code = 706-2) 0.4 % GRAN MAT x10^3(ANC) (test code = 7447642000) 4.22 10*3/uL 1.88-7.09 IMM GRAN x10^3 (test code = 3398468681) 0.00-0.06 LYMPH x10^3 (test code = 731-0) 2.56 10*3/uL 1.32-3.29 MONO x10^3 (test code = 742-7) 0.48 10*3/uL 0.33-0.92 EOS x10^3 (test code = 711-2) 0.04 10*3/uL 0.03-0.39 BASO x10^3 (test code = 704-7) 0.03 10*3/uL 0.01-0.07 [facility] [id number]* Test Item Value Reference Range Interpretation Comme nts POCT PREG (test code = 1605) Negative On board controls acceptable with C Line (test code = 3574) Present Lab Interpretation (test cod e = 14722-3) Normal [facility] Notes Date/Time Note Provider Source 2023-06-10 14:05:06 [id number]/bUT6EZ2956 -04-04T14:05:06 Images from the original note were not included.Ruby Menjivar MD [facility], is in first trimester, send prescription for Terazol 7 days cream please and notify LASHAWN Covingtonatient ID by name and .Given results and need for treatment.Patient verbalized understanding and agrees to plan of care.Pharmacy verified; rx sent. 12002-5Fctcqzzim encounter VesdHT1108-29-82A28:08:57Telephone encounter NoteTXT1.2.840.002683.1.13.104.2.7 .2.664670|[id number] for patient xaur81582-1AvzzOPJFVRDDOMHHnllotcq d C-CDA narrative [id number] L Lambert RN[address]Jr[id number] 00BDKXFUSUXBWVNRIBNESOGE3976-45-28 T14:08:571.2.840.381278.1.72.3.15| 1.2.840.166681.1.13.104.2.7.2.7278 [id number] Shelly Soriano RN [facility] 2023-05-12 16:00:15 K2uId0wJh3z1QGpjsMpiIHSxKKZzuvvKBr [facility]/cPVMdbr/n6tL6DrsXab6u57476 T16:00:15 6 wks. Pt. On several meds, pt. States not sure why she is on the meds, when asked if she had a dx. For the meds.Telephone encounter for new ob intakeWhat to expect at first visit discussedDiscussed expectations of first OB visit, Discuss visitor policy, clinic location and hospital location, Discussed call scheduled and access centerWhat to expect now and now and throughout , appointments,my chart and utilize for non-urgent messages, these do not go directly to the physicianClinic CE WARNING SIGNS FOR MISCARRIAGE AND ECTOPIC DISCUSSED.- recommend pt. go to [facility] or [facility] for evaluationThe address to [facility] location is[address] [place] [address] [id number]: Discussed TESTING/ GENETIC TESTING- Genetic testing is available after 10 weeks. We will discuss these options at your visit.Every visit we will get your BP, weight and ask you to leave a urine sample.Reviewed Guide Booklet, including nausea and vomiting, safe medication list, exercise, traveling- ZIKA, toxoplasmosis, Nutrition Counseling; dental care, common discomforts of , and booklet covers post careDiscussed website [email or web address] pt. Write down questions for the provider to discuss at appt.Here is some foods to avoid while . Don't eat raw or undercooked meats, eggs, seafood, fish, and shellfish. Also, some types of fish, such as shark, swordfish, and bradley mackerel, should not be eaten during . Don't eat hot dogs, lunch meats, or cold cuts.- If you have any non-urgent problems/questions, please utilize [employer] messaging to contact your nurse. For urgent matters, Please call the clinic between 8:00 am - 5:00 pm. After 5pm, our phone system rolls over to the after hours line (access center) which will answer our calls after hours, weekends and holidays. Please keep in mind [employer] is for NON URGENT medical matters. Please call your physician if the situation requires immediate attention, or dial 911 if it is a medical emergency. If you are experiencing other sudden changes in your health, contact your provider's office by telephone. For a non urgent message a staff member of the office will usually reply within 2-3 business days or longer if it over a weekend or holiday.- Please start taking, if you have not already, a Vitamin with folic acid and DHA. Any over the counter vitamin is sufficient.- If you have a cat at home, please avoid scooping the litter box due to the risk of toxoplasmosis.- You may take tylenol for pain or discomfort. The complete list of safe over the counter medications during is on our web site and you will get our new ob booklet at your first visit. Please read, as this information is very useful throughout your .-Eat a balanced diet, get plenty of rest- If you are having nausea or vomiting, you can take B6 vitamin and Unisom (over the counter). It may make you drowsy. Here is the dosage information:Vitamin B6 (also called Pyridoxine) 10-25mg, 3-4 times a dayIf you can only find 100mg dosage, take 1/2 tab twice a dayDoxylamine (Unisom) 12.5mg 3-4 times a dayThis only comes in 25 mg dosage and you can take 1/2 4 times a day or 1 tab twice a dayMy chart msg. Sent to pt.Pt. Has no other questions or concerns at this time.Pt. Verbalizes understanding and agrees with plan of care. 20530-5Nggaerjbo encounter LlcxHO5487-69-66X20:15:01Telephone encounter NoteTXT1.2.840.091481.1.13.104.2.7 .2.587278|[id number] for patient pwzl06652-9DcguOLQDQJSWLFQApizuxzl d C-CDA narrative textUT[address] LjyoL[id number] 71CLVJCWQKHFKBYOVJINPOBH6495-64-85 T16:15:011.2.840.469722.1.72.3.15| 1.2.840.082943.1.13.104.2.7.2.7278 [id number] [facility] 2023-05-12 14:47:15 qFFQp1nkYXERk97AOvOm2h/TK+fun/DVWV qS+Xndj4ORFki6E7XL6YkEN1edPkst7877 -03-06T14:47:15 NOBLMP 03/31/23Appt 05/26/23 72217-4Muhhdiyeb encounter PezqTY5760-08-47U87:48:04Telephone encounter NoteTXT1.2.840.734328..13.104.2.7 .2.628713|[id number] for patient awsd27427-4CbyaWDVFQLNDLPLErlzyqsz d C-CDA narrative yvin969860611Mecqxaj[address] [id number] 11JCHFKEGRQKEFKRVUZVJURE6826-64-66 T14:48:041.2.840.165178.1.72.3.15| 1.2.840.361783.1.13.104.2.7.2.7278 [id number] [facility] [address] 2023-05-03 12:18:17 uYwXzj3lMqrd4q2m/bQju5Gwqf1KGoUHlf B5r4zkmtzmkecB6Powm1w0riSirSa35779 -02-26T12:18:17 Takes valtrex daily for suppression 80977-0Fjhlwbcmg encounter CmibUH0813-00-43X13:18:17Telephone encounter NoteTXT1.2.840.111035.1.13.104.2.7 .2.880888|[id number] for patient kwnv46944-9DqkaOJCTRSKNWPHDbknubed d C-CDA narrative ikql443884639Nozbfotck Patrenella [id number] 80ESDJHRJLFHCTEEEWMIVDKX9887-69-50 T12:18:171.2.840.872281.1.72.3.15| 1.2.840.391710.1.13.104.2.7.2.7278 [id number] Joe Yen [facility] 2023-05-03 11:56:28 /xHhE9M4aNWJd2wY2MCoh5qcnMx0zzZam/ b0dJax6rxAbz/5EW8l5vYPQJ4vBC/+2023T11:56:28 04/29/2023 3:38 PM Fri-Cbc Family Ramiro Olvera MDOutpatient Medication DetailDisp Refills Start End DAWSUMATRIPTAN 50 mg tablet 9 tablet 0 04/29/2023 -- NoSig: TAKE ONE (1) TABLET(S) BY MOUTH AT ONSET OF HEADACHE, MAY REPEAT 1 TAB AFTER 2 HOURS IF NO IMPROVEMENT. TAKE NO MORE THAN 4 TABLETS IN 24 HOURS.Sent to pharmacy as: SUMAtriptan 50 mg tablet (IMITREX)Class: eRXOrder: [id number]/Time Signed: 04/29/2023 15:38E-Prescribing Status: Receipt confirmed by pharmacy (04/29/2023 3:39 PM PHLEBOTOMY LAB ASSISTANT)Contacted [facility]BThey did not receive above prescriptionPhoned in above script.Spoke to John Edwards read [place] [address]-8Fgifvfudc encounter CqgbTS0338-19-09W54:02:21Telephone encounter NoteTXT1.2.840.469856.1.13.104.2.7 .2.666503|[id number] for patient vrpy03408-1UappRCDJVWGIZUMPmvcdrtf d C-CDA narrative [id number] M Burroff RNUT[address] Ns[id number] 96HBLXTKQJTLAHJYKQTKIKLH4361-07-25 T12:02:211.2.840.365004.1.72.3.15| 1.2.840.838662.1.13.104.2.7.2.7278 [id number] Donna Lomeli RN [facility] 2023-05-03 11:54:25 qb6fLKDEvD2BTOWVQNQRSeBw3hiqp1rA3k pqqlChI5sio8XdJpa5HzKi/uIKKH8Q1587 -02-26T11:54:25 Pt is requesting a refill of triamcinolone creamRouting to derm clinic 00085-5Jixjgqxrs encounter LjbyRR5365-61-88Z26:56:18Telephone encounter NoteTXT1.2.840.512890.1.13.104.2.7 .2.839201|[id number] for patient ubsb35378-3ZqpcJETWJKIFBLVDfaqqmmd d C-CDA [address] Rr[id number] 49CKLGYHMKBDZSTJEKWKVYII5173-31-74 T11:56:181.2.840.886694.1.72.3.15| 1.2.840.534370.1.13.104.2.7.2.7278 [id number] [facility] 2023-05-03 11:44:44 g+gAUS1vtZFK42XeFAKddfFNzGvTKc1v/C 4h3SOWxPxRRjhbJiQvWF2Fdo5oSdrI1918 -02-26T11:44:44 Request for :valacyclovir [address] Moss - FWShanelle OBGYNTriamcinolone acetonide 0.1% cream prescribed by Dr Royal - DermRouting encounter for valacyclovir to OBGYN 80261-5Wkjselkoh encounter EmecSD5551-92-96Q59:51:44Telephone encounter NoteTXT1.2.840.947654.1.13.104.2.7 .2.581521|[id number] for patient baox28341-9TwukVEZGTMWVSHJSrtghusm d C-CDA narrative lnvs341647599Nlgfwz M Burroff [id number] 04REBRUSULEWCKDEYOPIQEOM9537-20-31 T11:51:441.2.840.773865.1.72.3.15| 1.2.840.410536.1.13.104.2.7.2.7278 [id number] Donna Lomeli [facility] 2023-04-29 15:31:33 HtLsIFi2AimzycoUJrcQJoMg4RQMoZqs+F aHqV0aWg10MDFQK1tovt/1yvWw8uPu9557 -02-22T15:31:33 Last Office Visit: 02/24/2023Refill requested for: sumatriptanLast refill on 03/16/2023 for 9 with 0refillLast Lab: 02/26/2023Follow up in 12 months per note on 06/04/2022Next office visit scheduled on noneRefill routed to provider for approval per Ambulatory guidelines. 07957-7Sdwypvupe encounter DdqkMS8912-36-96E58:34:45Telephone encounter NoteTXT1.2.840.963786.1.13.104.2.7 .2.089959|[id number] for patient rkhs00896-9OvlzVMESNARZSSEAjwbbuld d C-CDA narrative mjxd368880233Devzonk A Nunez [id number] 56XHGNZAXKIJTAEDKIAXQHVJ9347-21-25 T15:34:451.2.840.493518.1.72.3.15| 1.2.840.949138.1.13.104.2.7.2.7278 [id number] Stephanie Guillaume BRINE SUPERVISOR [facility] 2023-03-31 08:03:51 ghFFDYTPYYcWigqCX746OtyPKWafwrDQBs aWYiQw90mNXJQu3HdNrMkt5lm/GOCI53032023T08:03:51 Prior authorization has been approved, patient/pharmacy notified.Ochoa Alvarado RN 03/31/2023 8:04 AM 93241-0Bpdcuncvw encounter DjuzNN7856-38-49B06:04:21Telephone encounter NoteTXT1.2.840.259473.1.13.104.2.7 .2.107158|[id number] for patient qfci14098-5JgnqVTZNHTPDPSXRhjqcsub d C-CDA narrative [id number] Alvarado RN[address]vdG[id number] 55GOTZQNFQOGOTPUQKQNBWLL2809-96-63 T08:04:211.2.840.917828.1.72.3.15| 1.2.840.292520.1.13.104.2.7.2.7278 [id number] Ochoa Alvarado RN [facility] 2023-03-30 15:29:57 8IdLdOaftcPwjOyLJr2aMVusYrZ+V0RRmS BVOjCnYg5mIojiJ6BxTe0H5ms5rTsD1439 -01-23T15:29:57 Phone call to patient/spouse for clarification of message received. Initially speaking with patient with spouse on speaker phone mode. Spouse reports that the pharmacy the prescription was sent to does not have medication in stock, however, an alternate closer pharmacy does. Spouse also indicates that the pharmacist indicated that the medication would not be covered via insurance and would be 'over $1000'. Spouse indicated 'I know that it is covered by the insurance as she's had it before and they paid for it'. Phone call to pharmacy closer to patient (same company [facility]), received the following information- medication would require prior authorization for insurance to pay for it. Prior authorization initiated (callahan#[id number]), awaiting final disposition.Ochoa Alvarado RN 03/30/2023 3:43 PM 97030-7Dbqdogbxs encounter JbpbYD6941-93-15Y88:44:02Telephone encounter NoteTXT1.2.840.326694.1.13.104.2.7 .2.606429|[id number] for patient bwbh93059-4PykjJHCZJALFURNLyxcocgn d C-CDA narrative [id number] Alvarado RN[address]vdG[id number] 72WIUBSYZANGGQAFAJOGNZGF5091-84-23 T15:44:021.2.840.809421.1.72.3.15| 1.2.840.207908.1.13.104.2.7.2.7278 [id number] Ochoa Alvarado RN [facility] 2023-03-30 13:58:10 rgY61+7K0aQgTwImn4rmUHPHte+qqsKCI0 U7F3NrogPl7tT0z8E5Z/2V4WliQZdC8893 -01-23T13:58:10 Sultana Zaragoza is a 43 year old femalePt spouse calling to report that the rx for pt medication nirmatrelvir-ritonavir (PAXLOVID) 300 mg (150 mg x 2)-100 mg tablet can not be filled at the pharmacy as they are out until 05/06. Spouse states that he was also informed that the insurance will not cover the medication and is requesting alternate sent to the [facility] closer to their home. Pt is requesting a call back for further medical advice and clarification. Please advise.[facility] - [place], [place] - [address] [facility] [address] [facility] [phone] signed by Irasema Rowe at 03/30/2023 2:06 PM XEX11207-7Ibzhavjzl encounter UqatKF4649-95-09B03:06:07Telephone encounter NoteTXT1.2.840.993094.1.13.104.2.7 .2.476251|[id number] for patient pajj54035-0LcjeECGVPIBRQQIEgmzheul d C-CDA narrative itys992940247Wxjptqj A [address] LvuoGhcrihgpbFefrpntteJEVR14392532 20BRZZQXIWTPVJXMGBWVIXRX6339-79-48 T14:06:071.2.840.928889.1.72.3.15| 1.2.840.687967.1.13.104.2.7.2.7278 79_[id number] Irasema Rowe [facility] 2023-03-10 11:50:58 Sw6h7c9g8e+QCRN+5SC5bZle4aRhHt3a/T w8RVQ5KgeiGzDY5QZ0Lc75pXFi7IKn6511 -03-10T11:50:58 Last Office Visit: 02/24/2023Last time Migraines were addressed was 06/04/2022Requested PrescriptionsPending Prescriptions Disp RefillsSUMAtriptan 50 mg tablet [Pharmacy Med Name: Sumatriptan 50mg Tablet] 9 tabletSig: TAKE ONE (1) TABLET(S) BY MOUTH AT ONSET OF HEADACHE, MAY REPEAT 1 TAB AFTER 2 HOURS IF NO IMPROVEMENT. TAKE NO MORE THAN 4 TABLETS IN 24 HOURS.Last refill on 11/20/2022 for 10 with 2 refills by urgent careNext office visit scheduled onFuture AppointmentsIn 1 week Fatimah Royal MD [facility] and allergies verified? YesRefill request routed to provider for approval. 32801-9Ycqnzexzj encounter MctsIK5779-35-71G69:52:42Telephone encounter NoteTXT1.2.840.920427.1.13.104.2.7 .2.439811|[id number] for patient cfxx28635-2WdpmODWEUODVUFYZecwhhls d C-CDA narrative [id number] Bobo Leonor [address] MtcoQeuhlzqhmBezkwlvdpTDIV68959928 07EEJXQLFVLLRIPLHEWEDXEH0819-50-57 T11:52:421.2.840.610144.1.72.3.15| 1.2.840.725526.1.13.104.2.7.2.7278 79_[id number] [facility] 2023-02-26 10:50:34 NGV5do1ZLUx+zFyPkC93J32gDahDcUsUF/ sNta/4U74EHQwGnKxFwMYDXdRFZR460285 -12-22T10:50:34 Discharge education provided and discussed in detail with pt. Provided pt education sheets regarding abd pain.Discussed discharge prescription(s). Pt educated on medication dose, mechanism of action, rationale for medication, medication name and route of administration.PIV dc'd, catheter intact, bleeding controlled and dressing intact.Advised to seek further medical attention for any new/prolonged/worse/concerning symptoms; advised to follow up with PCP and/or specialist as instructed.Pt verbalized understanding of all information provided. Denies any further questions at this time. Respirations even and unlabored. No acute distress noted. Pt ambulatory unassisted steady gait to lobby. 37914-7Udahtsdxv department CbtsUI0247-97-97O48:52:05Emergency department NoteTXT1.2.840.301711.1.13.104.2.7 .2.021272|[id number] for patient eluf65996-2NwyyRCMYGMAAAIFRlrlukke d C-CDA narrative text[id number] 04PIZUMZHLCQDUKLSBGPRQRH5404-61-11 T10:52:051.2.840.549916.1.72.3.15| 1.2.840.720156.1.13.104.2.7.2.7278 79_[id number] [facility] 2023-02-26 07:00:04 yLMwob0keZ+riWm5hKCbykwYPELxvkw0Qd M7QpUdcpMlyfT0LbS7xoiPtgtyGdX/2022T07:00:04 Pt has appt in [place] for derm at 0900 and wants MD to be aware. 23051-3Srtrxovab department FoxgWF8416-09-67U50:00:27[facility] NoteTXT1.2.840.834103.1.13.104.2.7 .2.799016|[id number] for patient lfuv15626-6NkxySKJNKURLLNCApzwgrcn d C-CDA narrative text[id number] 21QEBGZEIFROFVACKUEWWIGZ8660-31-96 T07:00:271.2.840.241335.1.72.3.15| 1.2.840.477642.1.13.104.2.7.2.7278 [id number] [facility] 2023-02-26 06:57:43 zpMMhyBJjJu3eoJjKv9yh2u4yW1AdD6b1d Ede4Yb6D4X3tScTK6iuxZr9B7FaI150397 -12-22T06:57:43 Pt is a 43 year old female presenting to the ER forChief ComplaintPatient presents withAbdominal PainPt endorsing (8)/10 abd pain at this time. Pt took midol and rolaids with no relief. No diarrhea, no vomiting, pt stating she has a yeast infection, saw obgyn 3 days ago but didn't get any meds. Pt calm, cooperative, well appearing.Pt denies cp, sob, fever, chills, cough, sore throat, headache, dizziness, blurred vision.Pt has equal and unlabored respirations, no increased WOB, skin is warm, dry and intact, color appropriate to ethnicity, REES, ambulatory.Vitals:02/26/23 0656Weight: 96.6 kg (213 lb) 93148-0Mhgsuokho department Triage folqQJ1897-58-17I63:59:11[facility] Triage noteTXT1.2.840.764256.1.13.104.2.7 .2.331875|[id number] for patient uwsa31564-5Bjbiukvor department NoteLNNARRATIVEFormatted C-CDA narrative [id number] A Lene RNUT[address] StreetNaezGqekwuifpHvftnvzckHUTD51238582 55KUGLTSMYSMBIXBTPOFSGCT6333-26-19 T06:59:111.2.840.064723.1.72.3.15| 1.2.840.804093.1.13.104.2.7.2.7278 [id number] Mario Kemp RN [facility] 2023-02-26 06:52:00 EuqzAucTi4CewC6Y4hZ69VZqZPo4VVegFq rYVbNuhijfqVJOKcXff/DOa92Z/K3t2434T06:52:00 [facility] Emergency Department NotePatient Name: Sultana Boles of : 1980 43 year old femaleTreatment Room: [facility]MJC79Hilbqyc Record Number: [id number] Care Physician: Ramiro OlveraPatient Escorted by: Family [5]Mode of Arrival: Personal means [1]EMS Treatment Prior to ED Arrival:[employer] treatment: NoneTravel and Exposure Screening:SymptomsDoes patient have any of these symptoms?: (not recorded)Exposure ScreeningHas patient had contact with someone with a communicable disease in the last month?: (not recorded)Diseases exposed to:: (not recorded)Is Patient ?: (not recorded)Exposure Date: (not recorded)Chief Complaint:Chief ComplaintPatient presents withAbdominal PainHistory of Present Illness:Very pleasant lady presents for on-going diffuse cayla-umbilical crampy pain w/ n/v/d or fever. Pt seen recently for vaginal complaints and examined by her PCP w/ full battery of tests. Pt concerned that one test showed erendira but she wasn't treated for that.History provided by: Patient and medical recordsPast Medical History/Immunizations:Past Medical History:Diagnosis DateHSV (herpes simplex virus) anogenital infectionReports +blood testing in past, symptoms/outbreak once in past.STD (sexually transmitted disease)Tetanus received in last 5 years: UnknownChildhood immunizations: Pl-uv-ihdtGqjigjwoh:AllergiesAller gen ReactionsIbuprofen Other - See commentsPt states unable to take d/t having gastric bypass.Past Social History:Tobacco UseNever smoked or used smokeless tobacco.Vaping UseNever usedAlcohol UseNo.Drug UseNo.Sexual ActivitySexually active; Partners: Male; Control/Protection: Condom.Past Surgical History:Past Surgical History:Procedure Laterality DateCESAREAN SECTION N/A 03/25/2017Surgeon: Mack Navarrete MD; Location: [facility] Labor and Delivery OR LocationDILATION AND CURETTAGE (SHX)LAPAROSCOPIC ROBOTIC ASSISTED BARIATRIC GASTRIC BYPASS N/A 1Surgeon: Veronica Zheng MD; Location: [facility] OR LOCATIONReview of Systems:Review of SystemsConstitutional: Negative for activity change, appetite change, chills, diaphoresis, fatigue and fever.HENT: Negative for congestion, ear discharge, ear pain, facial swelling, hearing loss, sore throat, tinnitus, trouble swallowing and voice change.Eyes: Negative for photophobia, pain, discharge, redness, itching and visual disturbance.Respiratory: Negative for apnea, cough, choking, chest tightness, shortness of breath and stridor.Breasts: Negative for discharge.Cardiovascular: Negative for chest pain, palpitations and leg swelling.Gastrointestinal: Positive for abdominal pain. Negative for abdominal distention, blood in stool, diarrhea, nausea and vomiting.Genitourinary: Positive for vaginal discharge. Negative for dysuria, frequency, hematuria, flank pain, enuresis and difficulty urinating.Musculoskeletal: Negative for arthralgias, back pain, gait problem, joint swelling, myalgias, neck pain and neck stiffness.Skin: Negative for color change, pallor, rash and wound.Neurological: Negative for dizziness, syncope, facial asymmetry, speech difficulty, weakness, light-headedness and headaches.Psychiatric/Behavioral: Negative for agitation, confusion, hallucinations and self-injury. The patient is not nervous/anxious.Hematological: Negative for adenopathy, cold intolerance and heat intolerance. Does not bruise/bleed easily.Endocrine: Negative for cold intolerance, heat intolerance, polydipsia and polyphagia.Physical Exam:ED Triage VitalsWeight 02/26/23 0656 96.6 kg (213 lb)Actual or estimated --Height --BP 02/26/23 0658 120/70Pulse 02/26/23 0658 63Resp 02/26/23 0658 20Temp 02/26/23 0658 36.6 ?C (97.9 ?F)Temp src --SpO2 02/26/23 0658 97 %Measured on --Physical ExamConstitutional:General: She is not in acute distress.Appearance: She is well-developed. She is not ill-appearing, toxic-appearing or diaphoretic.HENT:Head: Normocephalic and atraumatic.Right Ear: External ear normal.Left Ear: External ear normal.Eyes:General: No scleral icterus.Right eye: No discharge.Left eye: No discharge.Neck:Trachea: No tracheal deviation.Cardiovascular:Rate and Rhythm: Normal rate and regular rhythm.Heart sounds: Normal heart sounds.Pulmonary:Effort: Pulmonary effort is normal. No respiratory distress.Breath sounds: Normal breath sounds. No stridor. No wheezing or rales.Abdominal:General: There is no distension.Palpations: Abdomen is soft.Tenderness: There is abdominal tenderness (mild diffuse ttp w/out peritonitis or focality). There is no guarding.Musculoskeletal:General: No tenderness or deformity. Normal range of motion.Cervical back: Normal range of motion and neck supple.Skin:General: Skin is warm.Coloration: Skin is not pale.Findings: No erythema or rash.Neurological:General: No focal deficit present.Mental Status: She is alert and oriented to person, place, and time.Motor: No abnormal muscle tone.Psychiatric:Behavior: Behavior normal.Thought Content: Thought content normal.Judgment: Judgment normal.Radiology:XR ABDOMEN 1 VWFinal ResultXR ABDOMEN 1 VWCLINICAL INDICATION: 43 years old Female with abd pain .COMPARISON: Review of CT abdomen pelvis with contrast 01/06/2022FINDINGS:Bowel gas pattern is normal. No pneumatosis, portal venous gas or freeintraperitoneal air on this single supine view.No abdominal calcification or mass effect.Visualized lung bases are clear and well aerated. Visualized osseousstructures are normal.IMPRESSIONNo acute findings in the abdomen.Preliminary Report Dictated by Resident: Caryn Cardoza MD., have reviewed this study and agree with theabovereport.Lab Results:Lab ResultsCBC WITH DIFF - AbnormalResult Value Ref RangeWBC 7.79 4.30 - 11.10 10*3/?LRBC 4.15 3.93 - 5.25 10*6/?LHGB 12.9 11.6 - 15.0 g/dLHCT 39.2 35.7 - 45.2 %MCV 94.5 80.6 - 95.5 fLMCH 31.1 25.9 - 32.8 pgMCHC 32.9 31.6 - 35.1 g/dLRDW-SD 42.6 39.0 - 49.9 fLRDW-CV 12.4 12.0 - 15.5 %PLT 240 166 - 358 10*3/?LMPV 10.5 9.5 - 12.9 fLNRBC/100 WBC 0.0 0.0 - 10.0 /100 WBCsNRBC x10^3 <0.01 10*3/?LGRAN MAT (NEUT) % 80.3 %IMM GRAN % 0.30 %LYMPH % 14.5 %MONO % 4.5 %EOS % 0.1 %BASO % 0.3 %GRAN MAT x10^3(ANC) 6.26 1.88 - 7.09 10*3/uLIMM GRAN x10^3 <0.03 0.00 - 0.06 10*3/uLLYMPH x10^3 1.13 (*) 1.32 - 3.29 10*3/uLMONO x10^3 0.35 0.33 - 0.92 10*3/uLEOS x10^3 <0.03 (*) 0.03 - 0.39 10*3/uLBASO x10^3 <0.03 0.01 - 0.07 10*3/uLBASIC METABOLIC PANEL (NA, K, CL, CO2, GLUCOSE, BUN, CREATININE, CA) - AbnormalNA 139 135 - 145 mmol/LK 4.5 3.5 - 5.0 mmol/LCL 105 98 - 108 mmol/LCO2 TOTAL 21 (*) 23 - 31 mmol/LAGAP 13 2 - 16BUN 15 7 - 23 mg/dLGLUCOSE 103 70 - 110 mg/dLCREATININE 0.61 0.50 - 1.04 mg/dLCALCIUM 9.3 8.6 - 10.6 mg/dLeGFR 115.4 mL/min/1.23t5TTZVVIQEWX - AbnormalAPPEARANCE Clear ClearCOLOR Yellow YellowPH 5.0 4.8 - 8.0SP GRAVITY 1.020 1.003 - 1.030GLU U QUAL Normal NormalBLOOD 1+ (*) NegativeKETONES Negative NegativePROTEIN Negative NegativeUROBILIN Normal NormalBILIRUBIN Negative NegativeNITRITE Negative NegativeLEUK YEMI Negative NegativeRBC/HPF 10 (*) 0 - 3 HPFWBC/HPF 1 0 - 5 HPFBACTERIA Negative NegativeMUCOUS Slight (*) Negative LPFSQ EPITH 2 <=2 HPFHEPATIC FUNCTION PANEL (71645) (ALB,T.PRO,BILI T,BU/BC,ALT,AST,ALK PHOS) - NormalTOTAL BILI 0.9 0.1 - 1.1 mg/dLBILI UNCON 0.7 0.1 - 1.1 mg/dLBILI CONJ 0.0 0.0 - 0.3 mg/[place] PROTEIN 7.3 6.3 - 8.2 g/dLALBUMIN 4.1 3.5 - 5.0 g/dLALK PHOS 59 34 - 122 U/LALTv 26 5 - 35 U/LAST(SGOT) 35 13 - 40 U/LPREGNANCY TEST, SERUMPREG SERUM NegativeEXTRA TUBE LT. GREENEKG:If EKG completed, see Procedure Note.Orders and Treatments:Orders Placed This EncounterProceduresXR ABDOMEN 1 VWCBC with DiffBASIC METABOLIC PANEL (NA, K, CL, CO2, GLUCOSE, BUN, CREATININE, CA)HEPATIC FUNCTION PANEL (79928) (ALB,T.PRO,BILI T,BU/BC,ALT,AST,ALK PHOS)URINALYSISPREGNANCY TEST, SERUMOrders Placed This EncounterMedicationsNaCl 0.9% (NS) bolus infusion 1,000 mLdicyclomine (BENTYL) capsule 20 mgfluconazole (DIFLUCAN) tablet 150 mgacetaminophen (TYLENOL) tablet 650 mgdicyclomine 20 mg tabletondansetron 4 mg disintegrating tabletFirst Provider Eval:ED EventsDate/Time Event User Oscuphts36/22/23718 Medical Screening Begins YADIEL KENNEDY MD --02/26/23718 First Provider Evaluation YADIEL KENNEDY MD --ED COURSEDiagnosis/Impression as of 02/26/23 1006Abdominal pain, unspecified abdominal locationProcedures:ProceduresMDM:M edical Decision MakingDDx incl constipation, vaginitis (documented), pancreatitis, UTI, et alAmount and/or Complexity of Data ReviewedLabs: ordered.Details: No sig heme, metabolic, renal, urinary issuesRadiology: ordered.Details: No obstruction or free airRiskOTC drugs.Prescription drug management.Risk Details: D/w pt results, rec plan of care and f/u, and red flags for returnFlowsheet Documentation:Disposition/Conditio n:ED DispositionED DispositionDisch - HomeConditionStableComment--Discha rge Medications:Patient's MedicationsSTART taking these medicationsDICYCLOMINE 20 MG TABLET Take 1 tablet by mouth 4 (four) times daily as needed for Abdominal pain.ONDANSETRON 4 MG DISINTEGRATING TABLET Take 1 tablet by mouth every 8 (eight) hours as needed for Nausea and Vomiting (N/V).CONTINUE taking these medications which have NOT CHANGEDALBUTEROL 90 MCG/ACTUATION INHALER Inhale 2 Puffs every 4 (four) hours as needed for Wheezing or Shortness of Breath.BENZONATATE 100 MG CAPSULE Take 1 capsule by mouth 3 (three) times daily as needed for Cough.FLUCONAZOLE 150 MG TABLET Take one tablet PO today, then repeat in 72 hoursFLUCONAZOLE 150 MG TABLET Take one tablet PO today, then repeat in 72 hoursFLUTICASONE PROPIONATE 50 MCG/ACTUATION NASAL SPRAY Use 1 [place] in each nostril 2 (two) times daily.METHYLPREDNISOLONE (MEDROL, GERMANIA,) 4 MG TABLETS Take by mouth SEE-INSTRUCTIONS. follow package directionsNIRMATRELVIR-RITONAVIR (PAXLOVID) 300 MG (150 MG X 2)-100 MG TABLET Take 3 tablets by mouth in the morning and 3 tablets in the evening.NORGESTIMATE-ETHINYL ESTRADIOL (SPRINTEC) 0.25-35 MG-MCG PER TABLET Take 1 tablet by mouth in the morning.OMEPRAZOLE 20 MG CAPSULE Open capsule and take by mouth once daily for 8 weeksSERTRALINE 100 MG TABLET Take 1 tablet by mouth in the morning.SUMATRIPTAN 50 MG TABLET TAKE ONE (1) TABLET(S) BY MOUTH , MAY REPEAT AFTER 2 HOURS IF NO IMPROVEMENT. TAKE NO MORE THAN 4 TABLETS IN 24 HOURS.TRAMADOL 50 MG TABLET TAKE ONE (1) TABLET BY MOUTH EVERY SIX HOURS NEEDED FOR PAIN (SCALE 7-10) OR PAIN (SCALE 4-6).TRIAMCINOLONE ACETONIDE 0.1 % CREAM Apply to area(s) 2 (two) times daily as needed.VALACYCLOVIR 500 MG TABLET TAKE 1 TABLET BY MOUTH DAILY.START taking Modified Medications as PrescribedNo medications on fileSTOP taking these medicationsNo medications on fileFollow-up:Electronically signed by:Yadiel Kennedy MD02/26/23 1006 [id number] Emergency department IbflXI4844-42-72V47:06:33Physician Emergency department [id number] .[id number] for patient qpjj47354-7Hdspzdnjn department NoteLNNARRATIVEFormatted C-CDA narrative text[id number] 41NTNEWWNLCDRPNHNUPVHZOL9171-87-74 T10:06:331.2.840.835448.1.72.3.15| [id number] [id number] [facility] 2022-11-14 08:29:16 MKherlyUrvPHeXcvntFwWCWdfVwPJ1H1+s /rRhOypkNIelpNdzxe0Uop0E7H6jbD9642 -09-09T08:29:16 Patient given discharge instructions. All questions answered and concerns addressed. Patient ambulated off the unit on her own, no distress noted. 68793-5Wuksukzqh department ZqboWA1030-88-28J21:29:53[facility] department NoteTXT1.2.840.730388.1.13.104.2.7 .2.035608|[id number] for patient [id number] Bobo Whiteside RN[id number] 09UYUPWYYHITEQTTBEHGGOVG6529-03-49 T08:29:531.2.840.957251.1.72.3.15| 1.2.840.445113.1.13.104.2.7.2.7278 [id number] Bri Whiteside RN [facility] 2022-11-14 08:10:29 hxRBYR3UzEvzxmLhvbyrkKGrQcHGGKYTHq ss09pmO8Qow++OCUcVG7qVVh+N7aop0209 -09-09T08:10:29 Physician bedside [address]28-8Noizwgoqw[address] CehqIU4203-68-35Z27:10:55[facility] NoteTXT1.2.840.230330.1.13.104.2.7 .2.274365|[id number] for patient ypkx91492-7CvybTSFXUOBDTP[id number] 09FKSRUTIBLVRQITEXYMFZDG7061-79-75 T08:10:551.2.840.410348.1.72.3.15| 1.2.840.074993.1.13.104.2.7.2.7278 [id number] [facility] 2022-11-14 07:54:53 KqaRb6/iX3UO+K4+Bqruw6bWk1XhnEEvVn dXpbfRS8OR8cL+Y8ZQAOcn6Vgt6wGz1520 -09-09T07:54:53 Pt complains of pain, headache 12/15 and "my head and my face are killing me" since last night at 2300. No complaints of n/v/d. VSS. No sick contacts. 04739-9Twbpvkppz department HcdkNU1227-44-33N82:58:36[facility] NoteTXT1.2.840.590170.1.13.104.2.7 .2.953014|[id number] for patient fxwq42357-4AepbMVQAXYXMHC99 [id number] 31OIEFVQZXODYMCTSOMYMDGI3895-69-14 T07:58:361.2.840.783179.1.72.3.15| 1.2.840.425997.1.13.104.2.7.2.7278 [id number] [facility] 2022-11-14 06:57:16 puOpvgAYtv8C95t8poqzQUILnjzzWg3NQB MOpgkB0Zq1kQUMAVy/dmAHI/e3Ic0P22142022T06:57:16 Sultana Zaragoza is a 42 year old female c/o "I think I have a sinus infection, I have a headache and my teeth are killing me. My nose and my face hurt also." Pt states she started feeling bad as 2300 last night. Pt took tylenol at 2345. Pt AAO x 4 resp even and unlabored. Subjective fever. 70167-6Qzjqddekj department Triage auooNA1678-08-28J16:59:39[facility] Triage noteTXT1.2.840.101892.1.13.104.2.7 .2.005077|[id number] for patient mvim16969-9Tujfegzgy department Note[id number] 45WNAPICIVLHDREALXNZEROD7405-26-54 T06:59:391.2.840.885860.1.72.3.15| 1.2.840.296161.1.13.104.2.7.2.7278 [id number] [facility] 2022-11-14 06:53:00 WKS8ZMptll5r63nYXfGs6k17HGjeIGCEl7 8r2hWuTkXGKkEINbbngWb9onpP/XE75743 -09-09T06:53:00 [facility] Emergency Department NotePatient Name: Sultana Boles of : 1980 42 year old femaleTreatment Room: [place] [id number] Record Number: [id number] Care Physician: Ramiro OlveraPatient Escorted by: Self [9]Mode of Arrival: Personal means [1]EMS Treatment Prior to ED Arrival:[employer] treatment: Medication (comment) [employer] treatment comments: Mucinex and tylenolTravel and Exposure Screening:SymptomsDoes patient have any of these symptoms?: (not recorded)Exposure ScreeningHas patient had contact with someone with a communicable disease in the last month?: (not recorded)Diseases exposed to:: (not recorded)Is Patient ?: (not recorded)Exposure Date: (not recorded)Chief Complaint:Chief Complaint Patient presents with Headache Sinus Problem History of Present Illness:Patient is a 42 year old female who presents with sinus pain. She reports symptoms first began around 9 p.m. last night when she began to have a runny nose, headache, stomach ache, and tooth pain. She tried Tylenol and Mucinex with no relief. Currently she is reporting a low-grade fever, feels cold, sore throat, cough, and some nausea. Nasal discharge does not have a color. Denies vomiting, ear pain, ear discharge, chest pain, or dyspnea. Lmp due this week. Past Medical History/Immunizations:Past Medical History: Diagnosis Date HSV (herpes simplex virus) anogenital infection Reports +blood testing in past, symptoms/outbreak once in past. STD (sexually transmitted disease) Tetanus received in last 5 years: Yes Allergies:Allergies Allergen Reactions Ibuprofen Other - See comments Pt states unable to take d/t having gastric bypass. Past Social History:Tobacco Use Never smoked or used smokeless tobacco. Vaping Use Never used Alcohol Use No. Drug Use No. Sexual Activity Sexually active; Partners: Male; Control/Protection: Condom. Past Surgical History:Past Surgical History: Procedure Laterality Date SECTION N/A 03/25/2017 Surgeon: Mack Navarrete MD; Location: [facility] Labor and Delivery OR Location DILATION AND CURETTAGE (SHX) LAPAROSCOPIC ROBOTIC ASSISTED BARIATRIC GASTRIC BYPASS N/A 02/20/2021 Surgeon: Veronica Zheng MD; Location: [facility] LOCATION Review of Systems: Review of Systems Constitutional: Positive for activity change, chills and fever. HENT: Positive for dental problem, rhinorrhea, sinus pressure and sore throat. Negative for ear discharge and ear pain. Eyes: Negative for pain, discharge and itching. Respiratory: Positive for cough. Negative for chest tightness, shortness of breath and wheezing. Cardiovascular: Negative for chest pain. Gastrointestinal: Positive for nausea. Negative for abdominal pain, diarrhea and vomiting. Neurological: Positive for headaches. Physical Exam: ED Triage Vitals Weight 11/14/22 0700 92.5 kg (204 lb) Actual or estimated 11/14/22 0700 Estimated by patient/family report Height 11/14/22 0700 1.702 m (5' 7") BP 11/14/22 0658 (!) 136/91 Pulse 11/14/22 0658 65 Resp 11/14/22 0658 18 Temp 11/14/22 0658 36.7 ?C (98 ?F) Temp source 11/14/22 0740 Oral SpO2 11/14/22 0658 98 % Measured on -- Physical ExamConstitutional: General: She is not in acute distress. Appearance: She is not ill-appearing or toxic-appearing. HENT: Head: Normocephalic and atraumatic. Right Ear: Tympanic membrane, ear canal and external ear normal. No tenderness. Left Ear: Tympanic membrane, ear canal and external ear normal. No tenderness. Nose: Right Turbinates: Enlarged and swollen. Left Turbinates: Enlarged and swollen. Right Sinus: Maxillary sinus tenderness present. Left Sinus: Maxillary sinus tenderness present. Mouth/Throat: Mouth: Mucous membranes are moist. Dentition: Normal dentition. No dental caries. Pharynx: Oropharynx is clear. No oropharyngeal exudate or posterior oropharyngeal erythema. Comments: No dental abscessMaxillary tenderness L>Farida: Conjunctiva/sclera: Conjunctivae normal. Cardiovascular: Rate and Rhythm: Normal rate and regular rhythm. Pulses: Normal pulses. Heart sounds: Normal heart sounds. Pulmonary: Effort: Pulmonary effort is normal. No respiratory distress. Breath sounds: Normal breath sounds. No wheezing. Abdominal: Palpations: Abdomen is soft. Tenderness: There is no abdominal tenderness. Neurological: General: No focal deficit present. Mental Status: She is alert. Psychiatric: Mood and Affect: Mood normal. Thought Content: Thought content normal. Radiology:No orders to display Lab Results:Lab Results COVID-19 (ID NOW RAPID TESTING) - Abnormal Result Value Ref Range SARS-CoV-2 Rapid ID NOW Positive (*) Not Detected POCT TEST - Normal POCT PREG Negative On board controls acceptable with C Line Yes POCT PREG LOT # [id number] POCT PREG TEST DATE 03/10/2024 EKG:If EKG completed, see Procedure Note. Orders and Treatments:Orders Placed This Encounter Procedures COVID-19 (ID NOW TESTING) POCT TEST LAB ONLY COVID INTERPRETATION Orders Placed This Encounter Medications ketorolac (TORADOL) injection 15 mg fluticasone propionate 50 mcg/actuation nasal spray 2 [place] nirmatrelvir-ritonavir (PAXLOVID) 300 mg (150 mg x 2)-100 mg tablet albuterol 90 mcg/actuation inhaler benzonatate 100 mg capsule First Provider Eval:ED Events Date/Time Event User Comments 11/14/22654 Medical Screening Begins FAUZIA RUIZ MD -- 11/14/22654 First Provider Evaluation FAUZIA RUIZ MD -- No notes of EC Admission Criteria type on file.ED COURSEDiagnosis/Impression as of 11/14/22 0809 Sinus pain COVID-19 virus infection Procedures: ProceduresMDM:Medical Decision MakingPatient presents with acute onset of sinus pressure and discharge. Based on history and physical exam and timeline of symptoms most likely viral rhinosinusitis, possibly covid, less likely bacterial sinusitis. Not consistent with meningitis or sepsis at this time.check poc preg , Will test for COVID, toradol IM for pain, and fluticasone for inflammation. Preg neg+covid. Discharge with supportive meds, follow up outpatient Problems Addressed:COVID-19 virus infection: acute illness or injury with systemic symptomsSinus pain: complicated acute illness or injuryAmount and/or Complexity of Data ReviewedLabs: ordered. Decision-making details documented in ED Course.RiskPrescription drug management. Flowsheet Documentation: Scoring Tools: No data recorded Disposition/Condition:ED Disposition ED Disposition Disch - Home Condition Stable Comment -- Discharge Medications:Patient's Medications START taking these medications ALBUTEROL 90 MCG/ACTUATION INHALER Inhale 2 Puffs every 4 (four) hours as needed for Wheezing or Shortness of Breath. BENZONATATE 100 MG CAPSULE Take 1 capsule by mouth 3 (three) times daily as needed for Cough. NIRMATRELVIR-RITONAVIR (PAXLOVID) 300 MG (150 MG X 2)-100 MG TABLET Take 3 tablets by mouth in the morning and 3 tablets in the evening. CONTINUE taking these medications which have NOT CHANGED FLUCONAZOLE 150 MG TABLET Take one tablet PO today, then repeat in 72 hours FLUCONAZOLE 150 MG TABLET Take one tablet PO today, then repeat in 72 hours FLUTICASONE PROPIONATE 50 MCG/ACTUATION NASAL SPRAY Use 1 [place] in each nostril 2 (two) times daily. METHYLPREDNISOLONE (MEDROL, GERMANIA,) 4 MG TABLETS Take by mouth SEE-INSTRUCTIONS. follow package directions NORGESTIMATE-ETHINYL ESTRADIOL (SPRINTEC) 0.25-35 MG-MCG PER TABLET Take 1 tablet by mouth in the morning. OMEPRAZOLE 20 MG CAPSULE Open capsule and take by mouth once daily for 8 weeks SERTRALINE 100 MG TABLET Take 1 tablet by mouth in the morning. SUMATRIPTAN 50 MG TABLET TAKE ONE (1) TABLET(S) BY MOUTH , MAY REPEAT AFTER 2 HOURS IF NO IMPROVEMENT. TAKE NO MORE THAN 4 TABLETS IN 24 HOURS. TRAMADOL 50 MG TABLET TAKE ONE (1) TABLET BY MOUTH EVERY SIX HOURS NEEDED FOR PAIN (SCALE 7-10) OR PAIN (SCALE 4-6). TRIAMCINOLONE ACETONIDE 0.1 % CREAM Apply to area(s) 2 (two) times daily as needed. VALACYCLOVIR (VALTREX) 500 MG TABLET Take 1 tablet by mouth daily. START taking Modified Medications as Prescribed No medications on file STOP taking these medications No medications on file Follow-up:Electronically signed by: Fauzai Ruiz MD11/14/22 0809 17669-1Wledkvzlh Emergency department CtrvCB6190-95-59A04:09:56Physician Emergency department NoteTXT1.2.840.036856.1.13.104.2.7 .2.243390|[id number] for patient sheg37301-5Iovmmoain department [address]vdG[id number] 85JATOLIXZZPJKAJWRBKGXSN1494-98-06 T08:09:561.2.840.831904.1.72.3.15| 1.2.840.192707.1.13.104.2.7.2.7278 [id number] [facility] 2022-10-19 14:56:45 opC/X4uXIFhrpEGsj7N6AKbG/W2eM3Da6y 9wFcYBCYAsNpIeEXbGE3TDSJI3YIXi3490 -08-14T14:56:45 Requested Prescriptions Pending Prescriptions Disp Refills SUMAtriptan 50 mg tablet [Pharmacy Med Name: SUMAtriptan SUCC 50 MG TABLET] 10 tablet 2 Sig: TAKE ONE TABLET BY MOUTH AT ONSET OF HEADACHE; MAY REPEAT ONE TABLET IN 2 HOURS IF NEEDED. TAKE NO MORE THAN 4 TABLETS IN 24 HOURS LAN 05/24/2022 ([facility] Visit)NOV none Lrx ( ramiro White)SUMAtriptan 50 mg tablet 10 tablet 2 09/29/2022 16536-0Hohrwllxw encounter PdqaKD8044-59-72D78:00:22Telephone encounter NoteTXT1.2.840.259848.1.13.104.2.7 .2.908051|[id number] for patient wjio16599-8NowjPLSCEKJJNI55 [address]G[id number] 38PXKCPEKGWRJMYOKJBTPWQC1927-52-45 T15:00:221.2.840.816161.1.72.3.15| 1.2.840.963272.1.13.104.2.7.2.7278 [id number] [facility] 2022-09-29 09:57:45 ayAXwVSqfIk2Z7VGUN6R+8Uc4tUJgXsxIp IwsctLyTFf56NJh38m5Mm7UH8Ty0mJ1419 -07-25T09:57:45 Last Office Visit: 06/04/2022Requested Prescriptions Pending Prescriptions Disp Refills SUMAtriptan 50 mg tablet [Pharmacy Med Name: Sumatriptan 50mg Tablet] 3 tablet Sig: TAKE ONE (1) TABLET(S) BY MOUTH , MAY REPEAT AFTER 2 HOURS IF NO IMPROVEMENT. TAKE NO MORE THAN 4 TABLETS IN 24 HOURS. Last refill on 06/04/2022 for 10 with 2 refillsNext office visit scheduled on: not yet scheduledPharmacy and allergies verified? YesRefill request routed to provider for approval. 09803-3Dwdcfrkww encounter WaerPV9953-12-51D51:01:52Telephone encounter NoteTXT1.2.840.704530.1.13.104.2.7 .2.414026|[id number] for patient [address] BzibTrhyovxlvMzagdvqhiQHVP56553722 27XFVPTWQWPGATUMIONQQAJS9287-83-32 T10:01:521.2.840.280849.1.72.3.15| 1.2.840.800307.1.13.104.2.7.2.7278 [id number] [facility]
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
[2023-06-13 15:54] VITALS: BP 127/74; TEMP 98.2; O2SAT 100
== END 2023-06-13 06:01 | disposition home or self-care (01) ==
LOC: ER 05:01
DX: M54.50 Low back pain, unspecified (principal); V49.40XA Driver injured in collision with unspecified motor vehicles in traffic accident, initial encounter
CPT/HCPCS: 99284